=== PATIENT | male | born 1955 | race Caucasian/White ===

== ENCOUNTER 2020-06-11 08:37 | Outpatient (REF) | payer MEDICARE, SELFPAY ==
[2020-06-11 11:28] LABS: MANUAL DIFF FLAG NO
[2020-06-11 11:39] LABS: Basophils Percent Auto 0.4 % (0-2); Eosinophils Absolute Auto 0.2 X10*3/uL (0.0-0.4); Hematocrit 39.3 % (42-52); Hemoglobin 13.4 g/dl (14.0-18.0); Imm Gran Abs Auto 0.02 X10*3/uL (0.00-0.03); Imm Gran Pct Auto 0.2 % (0.0-0.4); Lymphocytes Absolute Auto 3.3 X10*3/uL (1.2-4.9); Lymphocytes Percent Auto 40.3 % (20-40); Mean Corpuscular HGB Conc 34.1 g/dl (31.0-36.0); Mean Corpuscular Hemoglobin 30.9 pg (27.0-33.0); Mean Corpuscular Volume 90.8 fL (80-98); Mean Platelet Volume 10.6 fL (9.4-12.4); Monocytes Absolute Auto 0.7 X10*3/uL (0.1-1.2); Monocytes Percent Auto 8.2 % (2-11); Neutrophils Absolute Auto 3.9 X10*3/uL (2.0-8.3); Neutrophils Percent Auto 47.9 % (45-73); Platelet Count 320 X10*3/uL (160-400); Red Blood Count 4.33 X10*6/uL (4.60-5.80); Red Cell Distribution Width 12.9 % (11.0-16.0); White Blood Count 8.1 X10*3/uL (4.8-10.8)
[2020-06-11 12:15] LABS: Alanine Aminotransferase 13 U/L (0-40); Albumin Level 4.3 g/dL (3.5-5.0); Alkaline Phosphatase 99 U/L (39-117); Anion Gap 15 (12-20); Aspartate Amino Transferase 15 U/L (5-37); Bilirubin Total 0.7 mg/dL (0.0-1.0); Blood Urea Nitrogen 11 mg/dL (9-16); Calcium 9.5 mg/dL (8.4-10.2); Carbon Dioxide 26 mmol/L (22-29); Chloride 101 mmol/L (96-108); Cholesterol 210 mg/dL; Estimated Glomerular Filt Rate > 60; Glucose Fasting 98 mg/dL (60-99); HDL Cholesterol 74 mg/dL; LDL Cholesterol Calculated 117 mg/dl; Potassium 5.1 mmol/L (3.3-5.1); Sodium 137 mmol/L (135-145); Total Protein 6.8 g/dL (6.5-8.0); Triglycerides 95 mg/dL
== END 2020-06-11 08:38 | disposition home or self-care (01) ==
LOC: HO.HMGCLDS 08:37
PROVIDERS: PCP Internal Medicine; Visit Provider Internal Medicine
DX: B35.1 Tinea unguium (principal); R03.0 Elevated blood-pressure reading, without diagnosis of hypertension
CPT/HCPCS: 36415; 80053; 80061; 85025

== ENCOUNTER 2020-07-27 11:34 | Outpatient (REF) | payer MEDICARE, SELFPAY ==
--- NOTE | ~2020-07-27 | US_ITS ---
EXAMINATION: US VENOUS ULTRASOUND WITH DOPPLER LOWER EXTREMITY, LEFT CLINICAL INFORMATION: Left leg pain COMPARISON: None TECHNIQUE: Ultrasound of the deep veins is performed from the hip to the calf with compression sonography and color and pulse Doppler assessment. Spectral analysis with color-flow imaging is performed. FINDINGS: There is normal venous compression and respiratory variation and augmented flow. The visualized common femoral vein, superficial femoral vein, profunda femoral vein, popliteal vein, and the trifurcation region shows no evidence of deep venous thrombosis. There is extensive thrombus seen in the left greater saphenous vein from the proximal thigh to the mid calf. This extends 1.4 cm from the saphenofemoral junction. There is no Curry's cyst. US/US venous duplex LE LT IMPRESSION: No evidence of DVT. Extensive thrombus seen in the left greater saphenous vein or superficial thrombophlebitis. This extends 1.4 cm from the saphenofemoral junction.
== END 2020-07-27 11:35 | disposition home or self-care (01) ==
LOC: HO.US 11:34
PROVIDERS: PCP Internal Medicine; Visit Provider Nurse Practitioner Family
DX: Z13.89 Encounter for screening for other disorder (principal)
CPT/HCPCS: 93971

== ENCOUNTER 2020-07-27 12:38 | Emergency (ER) | payer MEDICARE, SELFPAY ==
[2020-07-27 12:45] VITALS: BP 173/85; PULSE 88; RESP 19; TEMP 36.1; O2SAT 99; BMI 27.6
--- NOTE | 2020-07-27 13:19 | ED.LOWEXIN ---
HPI - Extremity Injury (Lower) General Chief Complaint: Extremity Injury, Lower <LEONIDES Rios Last Filed: 07/27/20 14:18> Stated Complaint: Clot left leg <LEONIDES Rios Last Filed: 07/27/20 14:18> Time Seen by Provider: 07/27/20 13:17 <LEONIDES Rios Last Filed: 07/27/20 14:18> Source: patient <LEONIDES Rios Last Filed: 07/27/20 14:18> Mode of arrival: ambulatory <LEONIDES Rios Last Filed: 07/27/20 14:18> Limitations: no limitations <LEONIDES Rios Last Filed: 07/27/20 14:18> History of Present Illness HPI Narrative: 65 yo male here from outpatient US here with complaints of abnormal finding. He tells me he was seen at urgent care for painful area on the LLE of redness and discomfort which he noted 6 days ago. NO SOB/CP. NO h/o DVT or family history. No injury or trauma. Ambulatory with no difficulty. <LEONIDES Rios Last Filed: 07/27/20 14:18> Related Data Home Medications: Previous Rx's Medication Instructions Recorded terbinafine HCl 250 mg tablet 250 mg PO DAILY 42 Days #42 tab 06/09/20 betamethasone, augmented 0.05 % 1 appl TOPICAL BID PRN #50 g 07/09/20 topical cream prednisone 10 mg tablet 10 mg PO .COMPLEX #45 tab 07/09/20 lisinopril 10 mg tablet 10 mg PO DAILY #30 tab 08/11/20 <LEONIDES Rios Last Filed: 07/27/20 14:18> Allergies/Adverse Reactions: Allergies Allergy/AdvReac Type Severity Reaction Status Date / Time No Known Allergies Allergy Verified 07/25/20 22:57 [No Known Allergies*] <LEONIDES Rios Last Filed: 07/27/20 14:18> Review of Systems Review of Systems: Yes all other systems are reviewed and are negative <LEONIDES Rios Last Filed: 07/27/20 14:18> Constitutional: Constitutional: Reports no additional constitutional complaints, Denies body ache(s), Denies chills, Denies fever(s), Denies headache(s) and Denies weakness <Alena Whitaker NP - Last Filed: 07/27/20 14:18> Eyes: Eyes: Reports no additional eye complaints and Denies change in vision <Alena Whitaker VENDOR MANAGEMENT SPECIALIST - Last Filed: 07/27/20 14:18> ENT: Reports system reviewed and no additional complaints, except as documented, Denies dizziness, Denies headache(s), Denies nasal congestion, Denies nasal discharge and Denies neck pain <Alena Whitaker VENDOR MANAGEMENT SPECIALIST - Last Filed: 07/27/20 14:18> Cardiovascular: Cardiovascular: Reports no additional cardiovascular complaints, Denies chest pain, Denies leg edema and Denies dyspnea <Alena Whitaker VENDOR MANAGEMENT SPECIALIST - Last Filed: 07/27/20 14:18> Respiratory: Respiratory: Reports no additional respiratory complaints, Denies cough and Denies dyspnea <Alena Whitaker VENDOR MANAGEMENT SPECIALIST - Last Filed: 07/27/20 14:18> Gastrointestinal: Gastrointestinal: Reports no additional gastrointestinal complaints, Denies abdominal pain, Denies diarrhea, Denies nausea and Denies vomiting <Alena Whitaker VENDOR MANAGEMENT SPECIALIST - Last Filed: 07/27/20 14:18> Genitourinary: Genitourinary: Denies urinary incontinence <Alena Whitaker VENDOR MANAGEMENT SPECIALIST - Last Filed: 07/27/20 14:18> Musculoskeletal: Musculoskeletal: Reports no additional musculoskeletal complaints, Denies back pain, Denies arthralgias, Denies joint swelling, Denies neck pain, Denies numbness and Denies tingling <Alena Whitaker VENDOR MANAGEMENT SPECIALIST - Last Filed: 07/27/20 14:18> Integumentary/Breasts: Skin/Breast: Reports system reviewed and no additional complaints, except as docu, Reports erythema and Denies rash <Alena Whitaker VENDOR MANAGEMENT SPECIALIST - Last Filed: 07/27/20 14:18> Neurologic: Reports system reviewed and no additional complaints, except as documented, Denies Abnormal speech present, Denies dizziness, Denies headache(s), Denies numbness, Denies tingling and Denies weakness <Alena Whitaker NP - Last Filed: 07/27/20 14:18> [facility] Past Medical History Attestation statement: The following information was validated with the patient. <Alena Whitaker NP - Last Filed: 07/27/20 14:18> Source: old records reviewed and nursing notes reviewed <Alena Whitaker NP - Last Filed: 07/27/20 14:18> Medical History: Medical History Alcohol use disorder Elevated blood pressure reading Essential hypertension Herniated disc <Alena Whitaker NP - Last Filed: 07/27/20 14:18> Surgical History: Surgical History No pertinent past surgical history <Alena Whitaker NP - Last Filed: 07/27/20 14:18> Family History Family History: Family History Mother Diabetes mellitus Sister Diabetes mellitus <Alena Whitaker NP - Last Filed: 07/27/20 14:18> Social History Social History: Social History Alcohol intake: current Alcohol intake frequency: 3 or more drinks per day Alcohol type: beer Cigarette Packs Per Day: 10 <Alena Whitaker NP - Last Filed: 07/27/20 14:18> Physical Exam Vital Signs: Vital Signs: Last Vital Signs Temp 97 F 07/27/20 12:45 Pulse 88 07/27/20 12:45 Resp 07/27/20 12:45 BP 173/85 H 07/27/20 12:45 Pulse Ox 99 07/27/20 12:45 Body Mass Index 27.6 <Alena Whitaker NP - Last Filed: 07/27/20 14:18> Vital Signs: Last Vital Signs Temp 97 F 07/27/20 12:45 Pulse 88 07/27/20 12:45 Resp 07/27/20 12:45 BP 173/85 H 07/27/20 12:45 Pulse Ox 99 07/27/20 12:45 Body Mass Index 27.6 <Ab Martinez MD - Last Filed: 09/01/20 17:29> Const: General: cooperative, healthy appearing, comfortable and no acute distress <Alena Whitaker NP - Last Filed: 07/27/20 14:18> Orientation/consciousness: patient oriented x3 <Alena Whitaker NP - Last Filed: 07/27/20 14:18> Limitations: no limitations <Alena Whitaker NP - Last Filed: 07/27/20 14:18> HENMT: Head: Yes normal to inspection <Alena Whitaker NP - Last Filed: 07/27/20 14:18> Ears: hearing grossly normal bilaterally <Alena Whitaker NP - Last Filed: 07/27/20 14:18> General nose exam: Normal external nose present <Alena Whitaker NP - Last Filed: 07/27/20 14:18> Face and sinus: Yes normal facial exam <Alena Whitaker NP - Last Filed: 07/27/20 14:18> Mouth: Normal oral and palatal mucosa present <Alena Whitaker NP - Last Filed: 07/27/20 14:18> Throat: Yes posterior oropharynx normal <Alena Whitaker NP - Last Filed: 07/27/20 14:18> Eyes: General: appearance normal, both eyes and all related structures <Alena Whitaker NP - Last Filed: 07/27/20 14:18> Pupils: Equal, round and reactive pupils present <Alena Whitaker NP - Last Filed: 07/27/20 14:18> Neck: Neck: Yes normal visual inspection <Alena Whitaker NP - Last Filed: 07/27/20 14:18> Chest: Chest palpation & inspection: normal inspection of the chest <Alena Whitaker NP - Last Filed: 07/27/20 14:18> Resp: Effort & Inspection: normal respiratory effort <Alena Whitaker NP - Last Filed: 07/27/20 14:18> Auscultation: clear to auscultation bilaterally <Alena Whitaker NP - Last Filed: 07/27/20 14:18> Cardio: Rate: regular rate <Alena Whitaker VENDOR MANAGEMENT SPECIALIST - Last Filed: 07/27/20 14:18> Rhythm: regular rhythm <Alena Whitaker NP - Last Filed: 07/27/20 14:18> Peripheral pulses: Peripheral pulses 2+ throughout <Alena Whitaker VENDOR MANAGEMENT SPECIALIST - Last Filed: 07/27/20 14:18> GI: Inspection: Yes normal to inspection <Alena Whitaker NP - Last Filed: 07/27/20 14:18> Palpation (GI): Soft to palpation and nontender <Alena Whitaker VENDOR MANAGEMENT SPECIALIST - Last Filed: 07/27/20 14:18> Auscultation: normal bowel sounds <Alena Whitaker NP - Last Filed: 07/27/20 14:18> Back/Spine/Pelvis: Thoracic/Lumbar Spine: thoracic and lumbar spine normal to inspection <Alena Whitaker VENDOR MANAGEMENT SPECIALIST - Last Filed: 07/27/20 14:18> Skin: General skin exam: no rashes or lesions noted <Alena Whitaker NP - Last Filed: 07/27/20 14:18> Neuro: General: patient oriented x3, no focal motor deficits and normal sensation to monofilament <Alena Whitaker NP - Last Filed: 07/27/20 14:18> Cranial nerves: Yes Equal, round and reactive pupils present <Alena Whitaker NP - Last Filed: 07/27/20 14:18> Cognition (Neuro): normal cognition <Alena Whitaker NP - Last Filed: 07/27/20 14:18> Speech: No Abnormal speech present <Alena Whitaker NP - Last Filed: 07/27/20 14:18> Gait exam (Neuro): Normal gait present <Alena Whitaker NP - Last Filed: 07/27/20 14:18> Motor exam (neuro): 5/5 motor strength present throughout <Alena Whitaker NP - Last Filed: 07/27/20 14:18> Extrem: Other: To the left calf there is a paplable tender vein with mild erythema but no calf pain or swelling. <Alena Whitaker NP - Last Filed: 07/27/20 14:18> General: Yes normal to inspection <Alena Whitaker NP - Last Filed: 07/27/20 14:18> Course Course Course Narrative: 65 yo male here with complaints of abnormal US. Reviewed US which shows NO DVT. Thrombus in the left greater saphenus vein with superficial thrombophlebitis. Discussed findings with Dr Martinez. Plan for warm compresses, NSAIDS w/w/o 81mg ASA. Discussed with patient who agrees. Reviewed worrisome signs/symptoms with patient and when to return to ED. Comfortable with discharge home. <Alena Whitaker NP - Last Filed: 07/27/20 14:18> I have reviewed the chart <Ab Martinez MD - Last Filed: 09/01/20 17:29> MDM - Extremity Injury (Lower) Medical Records Attestation: I reviewed the patient's medical records. <Alena Whitaker NP - Last Filed: 07/27/20 14:18> Lab Data Attestation: I reviewed the patient's lab results. <Alena Whitaker NP - Last Filed: 07/27/20 14:18> Imaging Data Venous US: Attestation: I personally reviewed and interpreted this imaging study as follows: <Alena Whitaker NP - Last Filed: 07/27/20 14:18> Radiologist's impression: [address] [id number] ReportSigned Patient: Joe GastonMR#: [id number]: [id number]:[id number]/Sex: 65 / MADM Date: 07/27/20Loc: HO.USAttending Dr: Zeynep Rome NP Ordering Physician: Zeynep Rome NP Date of Service: 07/27/20 Procedure(s): US venous duplex LE LT Accession Number(s): [id number] cc: Zeynep Rome NP~ EXAMINATION: US VENOUS ULTRASOUND WITH DOPPLER LOWER EXTREMITY, LEFT CLINICAL INFORMATION: Left leg pain COMPARISON: None TECHNIQUE: Ultrasound of the deep veins is performed from the hip to the calf with compression sonography and color and pulse Doppler assessment. Spectral analysis with color-flow imaging is performed. FINDINGS: There is normal venous compression and respiratory variation and augmented flow. The visualized common femoral vein, superficial femoral vein, profunda femoral vein, popliteal vein, and the trifurcation region shows no evidence of deep venous thrombosis. There is extensive thrombus seen in the left greater saphenous vein from the proximal thigh to the mid calf. This extends 1.4 cm from the saphenofemoral junction. There is no Curry's cyst. US/US venous duplex LE IMPRESSION: No evidence of DVT. Extensive thrombus seen in the left greater saphenous vein or superficial thrombophlebitis. This extends 1.4 cm from the saphenofemoral junction. <Alena Whitaker NP - Last Filed: 07/27/20 14:18> Discharge Plan Discharge Clinical Impression: Superficial thrombophlebitis of left leg <Alena Whitaker NP - Last Filed: 07/27/20 14:18> Patient Disposition: Home, Self-Care <Alena Whitaker NP - Last Filed: 07/27/20 14:18> Instructions: Superficial Thrombophlebitis (ED) <Alena Whitaker NP - Last Filed: 07/27/20 14:18> Additional Instructions: Your ultrasound shows a superfical blood clot but NO deep blood clots Warm compresses to the leg four times daily Motrin 400mg three time daily for pain and inflammation Consider taking a baby aspirin daily 81mg and following up with your primary care doctor <Alena Whitaker NP - Last Filed: 07/27/20 14:18> Prescriptions: No Action lisinopril 10 mg tablet 10 mg PO DAILY Qty: 30 RF: 2 prednisone 10 mg tablet 10 mg PO .COMPLEX Qty: 45 RF: 0 betamethasone, augmented 0.05 % cream 1 appl topical BID PRN (Reason: itching) Qty: 50 RF: 0 terbinafine HCl 250 mg tablet 250 mg PO DAILY 42 Days Qty: 42 RF: 0 <Alena Whitaker NP - Last Filed: 07/27/20 14:18> Referrals: Tracy Lowry MD [Primary Care Provider] - 2 days <Alena Whitaker NP - Last Filed: 07/27/20 14:18> Interventions: ED Discharge Assessment Last Done: 07/27/20 13:49 <Alena Whitaker NP - Last Filed: 07/27/20 14:18> Discharge Date/Time: 07/27/20 13:51 <Alena Whitaker NP - Last Filed: 07/27/20 14:18>
--- NOTE | 2020-07-27 13:47 | PC.NURSE ---
PT WAS EVALUATED IN TRIAGE BY СВЕТЛАНА REPAIRER [employer]. PT WAS ASSESSED AND SENT FOR IMAGING. PT AMBULATORY, +CMS. DENIES SOB. DENIES CP OR DIZZINESS. PT AGREEABLE TO PLAN OF CARE. RESULTS REVIEWED BY REPAIRER [employer], PLAN IS FOR DC FROM WAITING ROOM. PT AGREEABLE TO PLAN. REMAINS ALERT AND ORIENTED X 3. CONTINUES TO DENY CP/SOB. AMBULATORY, GAIT STEADY
== END 2020-07-27 13:51 | disposition home or self-care (01) ==
PROVIDERS: Emergency Provider Emergency Medicine; PCP Internal Medicine
DX: I80.02 Phlebitis and thrombophlebitis of superficial vessels of left lower extremity (principal); M79.605 Pain in left leg; I10 Essential (primary) hypertension
CPT/HCPCS: 93971; 99283

== ENCOUNTER 2020-10-25 11:43 | Outpatient (REF) | payer MEDICARE, SELFPAY ==
[2020-10-25 14:22] LABS: Anion Gap 14 (12-20); Blood Urea Nitrogen 9 mg/dL (9-16); Calcium 9.9 mg/dL (8.4-10.2); Carbon Dioxide 22 mmol/L (22-29); Chloride 102 mmol/L (96-108); Estimated Glomerular Filt Rate > 60; Glucose Fasting 93 mg/dL (60-99); Potassium 5.3 mmol/L (3.3-5.1); Sodium 133 mmol/L (135-145)
== END 2020-10-25 11:44 | disposition home or self-care (01) ==
LOC: HO.HMGCLDS 11:43
PROVIDERS: PCP Internal Medicine; Visit Provider Internal Medicine
DX: I10 Essential (primary) hypertension (principal)
CPT/HCPCS: 36415; 80048

== ENCOUNTER 2021-07-01 09:38 | Emergency (ER) | payer MEDICARE, SELFPAY ==
[2021-07-01 09:44] VITALS: BP 167/95; PULSE 102; RESP 16; TEMP 36.2; O2SAT 99; BMI 28.2
[2021-07-01] MEDS: Tetracaine HCl/PF 0.5% Oph Sol 4 ML DROPS 2 DROP EYE-BOTH (09:54)
[2021-07-01] MEDS: Fluorescein Sodium STRIP 1 STRIP EYE-BOTH (09:55)
[2021-07-01] MEDS: Erythromycin Base 0.5% Oph Oin 1 GM TUBE 1 CM EYE-RIGHT (09:55)
--- NOTE | 2021-07-01 10:04 | ED_ITS ---
HPI - Eye Problem General Chief complaint: Eye Problems Stated complaint: FO in R eye Time Seen by Provider: 07/01/21 09:51 Source: patient Mode of arrival: ambulatory Limitations: no limitations History of Present Illness HPI Narrative: 65-year-old male presenting to the ED with complaints of feeling like there is a foreign body in his right eye with increased blurry vision since when he was outside doing yd work he reports that a branch poked his right eye and this is when his symptoms started. Reports he is not sure if he is up-to-date on tetanus. He denies any other symptoms complaints or concerns at this time. chief complaint: eye injury, vision change and foreign body Onset (ago): week(s) (6) Onset description: sudden Duration: constant Location: right eye Eye Symptoms: foreign body sensation, itching and blurry vision Place: street/outdoors Mechanism: direct trauma Severity: mild If Pain, Quality: other (foreign body sensation ) Associated symptoms: none Treatments Prior to Arrival: irrigated eye Related Data Patient tetanus UTD: No Home Medications Medication Instructions Recorded Confirmed triamcinolone acetonide 0.1 % 1 appl TOPICAL DAILY 04/25/21 04/25/21 topical cream Previous Rx's Medication Instructions Recorded lisinopril 10 mg tablet 10 mg PO DAILY #90 tab 03/10/21 erythromycin 5 mg/gram (0.5 %) eye 0.5 inch OPHTHALMIC (EYE) QID 7 07/01/21 ointment Days #3.5 g Allergies Allergy/AdvReac Type Severity Reaction Status Date / Time No Known Allergies Allergy Verified 07/01/21 09:47 [No Known Allergies*] Review of Systems Review of Systems: Constitutional : No fevers, no chills, No changes in activity, No lethargy, No recent prior head injury, No agitation, No increased fussiness ENT/Mouth : No Ear Pain, No Nasal discharge/drainage Eyes: + Vision changes/blurry/decreased vision/FB sensation, No Eye Pain, No Swelling, No Redness, No Photophobia, no discharge, no drainage, no itching, no eyelid edema, no contact lens uses, no recent welding, no bleeding Cardiovascular : No Chest Pain, No SOB Respiratory : No Cough Gastrointestinal : No Nausea, No Vomiting, No abdominal Pain Genitourinary : No Dysuria, No Urinary Frequency, No Urinary Incontinence, No Urgency, No Flank Pain Musculoskeletal : No joint pain, No neck stiffness, No back pain/injury Skin : No lacerations Neuro : No unsteady gait, No Paresthesias, No Loss of Consciousness, No altered mental status, No dizziness, No Headache Denies past medical history of HIV, recent trauma, coagulopathy, recent spinal/ epidural procedure, new medication, URI symptoms, close contacts with similar symptoms, tick bite, or known CO2 exposure. Yes all other systems are reviewed and are negative [facility] Past Medical History Attestation statement: The following information was validated with the patient. Medical History Alcohol use disorder Anemia Essential hypertension Herniated disc Spongiotic dermatitis Surgical History No pertinent past surgical history Family History Family History Mother Diabetes mellitus Sister Diabetes mellitus Social History Social History Housing: House Alcohol intake: current Alcohol intake frequency: 3 or more drinks per day Alcohol type: beer Patient Tobacco Use Status: Current everyday Tobacco user Cigarette Packs Per Day: 10 e-Cigarette/Vaping Use: Never Used Advance Directives: No Advance Directives Information Provided: No service: No Current occupational status: retired Physical Exam Vital Signs: Vital Signs: Last Vital Signs Temp 97.1 F 07/01/21 09:44 Pulse 102 H 07/01/21 09:44 Resp 16 07/01/21 09:44 BP 167/95 H 07/01/21 09:44 Pulse Ox 99 07/01/21 09:44 BMI result Body Mass Index 28.2 vital signs have been reviewed as normal and appeared to be correct. Blood pressure normal. Heart rate normal. Respiration rate normal. Temperature normal. Oxygen saturation normal. Appearance: Alert. Oriented X3. No acute distress. Head: Normal external exam. Normocephalic. Atraumatic. No Awad signs noted. No raccoon eyes noted Eyes: PERRLA. EOMI. Conjunctiva are normal. To the right upper aspect of the cornea at the 12:00 o'clock aspect patient has a superficial corneal abrasion. No foreign bodies noted. Funduscopic exam within normal limits. Sclera normal. Eyelids normal. No papilledema noted. Anterior chamber normal. No photophobia noted. See nurse's note. for visual acuity ENT: EAC normal. TM's Normal. Pharynx normal. Uvula midline. Moist mucous membranes. Neck: Normal inspection. Neck supple. FROM. No adenopathy. Thyroid Normal. No meningeal signs. No neck mass noted. CVS: Normal heart rate and rhythm. Heart sound normal. No murmurs noted. Pulses normal throughout. Respiratory: No respiratory distress. Painless inspiration. Breath sounds normal. Back: Full range of motion noted. Skin: Skin warm and dry. Normal skin color. Normal skin turgor. No rashes/lesions/lacerations noted. Extremities: No lower extremity edema. Extremities exhibit normal range of motion. Extremities nontender. Neuro: Oriented X 3. No motor deficit. No sensory deficit. Reflexes normal. Course Course Course Narrative: Patient with corneal abrasion. No foreign bodies noted. See nurse's note for visual acuity. Tetanus updated. Erythromycin ointment applied. Patient tolerated procedure well no complications. Not consistent with globe rupture. No signs of infection. Will DC home with instructions to follow-up with PCP an electronics tester and to return if any new or worsening symptoms. Patient understands agrees with this plan. MDM - Eye Problem Medical Records Attestation: I reviewed the patient's medical records. Discharge Plan Discharge Clinical Impression: Corneal abrasion Patient Disposition: Home, Self-Care Instructions: Corneal Abrasion (ED) Prescriptions: New erythromycin 5 mg/gram (0.5 %) ointment 0.5 inch ophthalmic (eye) QID 7 Days Qty: 3.5 0RF No Action lisinopril 10 mg tablet 10 mg PO DAILY Qty: 90 3RF triamcinolone acetonide 0.1 % cream 1 appl topical DAILY 0RF Referrals: Tracy Lowry MD [Primary Care Provider] - 2 days Hcetor Eid [Physician] - 2 days Print Language: Icelandic
[2021-07-01] MEDS: Diphth,Pertus(ACell),Tet Adult 0.5 ML SYRINGE IM (10:17)
== END 2021-07-01 10:22 | disposition home or self-care (01) ==
LOC: HO.ED 10:14
PROVIDERS: Emergency Provider Emergency Medicine Emergency Medical Services; PCP Internal Medicine
DX: S05.01XA Injury of conjunctiva and corneal abrasion without foreign body, right eye, initial encounter (principal); I10 Essential (primary) hypertension; W26.8XXA Contact with other sharp object(s), not elsewhere classified, initial encounter; Y93.H9 Activity, other involving exterior property and land maintenance, building and construction; Y92.096 Garden or yard of other non-institutional residence as the place of occurrence of the external cause; Y99.9 Unspecified external cause status
CPT/HCPCS: 90471; 90715; 99283; 99284

== ENCOUNTER 2021-12-05 08:42 | Outpatient (REF) | payer MEDICARE, SELFPAY ==
[2021-12-05 11:16] LABS: MANUAL DIFF FLAG NO
[2021-12-05 11:33] LABS: Basophils Absolute Auto 0.1 X10*3/uL (0.0-0.2); Basophils Percent Auto 0.6 % (0-2); Eosinophils Absolute Auto 0.4 X10*3/uL (0.0-0.4); Hemoglobin 13.7 g/dl (14.0-18.0); Imm Gran Abs Auto 0.05 X10*3/uL (0.00-0.03); Imm Gran Pct Auto 0.6 % (0.0-0.4); Mean Corpuscular HGB Conc 34.3 g/dl (31.0-36.0); Mean Corpuscular Hemoglobin 31.6 pg (27.0-33.0); Mean Corpuscular Volume 92.4 fL (80.0-98.0); Mean Platelet Volume 10.8 fL (9.4-12.4); Monocytes Absolute Auto 0.8 X10*3/uL (0.1-1.2); Monocytes Percent Auto 9.5 % (2-11); Neutrophils Absolute Auto 5.3 x10*3/uL (2.0-8.3); Neutrophils Percent Auto 61.3 % (45-73); Platelet Count 343 X10*3/uL (160-400); Red Blood Count 4.33 X10*6/uL (4.60-5.80); Red Cell Distribution Width 12.6 % (11.0-16.0); White Blood Count 8.6 X10*3/uL (4.8-10.8)
[2021-12-05 12:22] LABS: Anion Gap 16 (12-20); Blood Urea Nitrogen 15 mg/dL (9-16); Carbon Dioxide 25 mmol/L (22-29); Chloride 102 mmol/L (96-108); Cholesterol 205 mg/dL; Estimated Glomerular Filt Rate > 60; Glucose Fasting 106 mg/dL (60-99); HDL Cholesterol 56 mg/dL; Iron 77 mcg/dL (45-160); LDL Cholesterol Calculated 130 mg/dl; Percent Iron Saturation 23 % (15-50); Potassium 5.5 mmol/L (3.3-5.1); Sodium 137 mmol/L (135-145); Total Iron Binding Capacity 342 mcg/dL (228-428); Triglycerides 97 mg/dL; Unsaturated Iron Binding 265 ug/dL
== END 2021-12-05 08:43 | disposition home or self-care (01) ==
LOC: HO.HMGCLDS 08:42
PROVIDERS: PCP Internal Medicine; Visit Provider Internal Medicine
DX: D64.9 Anemia, unspecified (principal); I10 Essential (primary) hypertension
CPT/HCPCS: 36415; 80048; 80061; 83540; 85025

== ENCOUNTER 2021-12-13 13:15 | Outpatient (REF) | payer MEDICARE, SELFPAY ==
[2021-12-13 14:52] LABS: PSA,Total (Free>4and<10) 1.13 ng/mL (0.00-4.00)
[2021-12-14 13:33] LABS: Lyme Abs Screen <0.90 index
== END 2021-12-13 13:16 | disposition home or self-care (01) ==
LOC: HO.HMGCLDS 13:15
PROVIDERS: PCP Internal Medicine; Visit Provider Internal Medicine
DX: Z12.5 Encounter for screening for malignant neoplasm of prostate (principal); M25.50 Pain in unspecified joint; R58 Hemorrhage, not elsewhere classified
CPT/HCPCS: 36415; 84153; 86617; 86618

== ENCOUNTER 2022-06-09 08:58 | Outpatient (REF) | payer MEDICARE, SELFPAY ==
[2022-06-09 11:39] LABS: MANUAL DIFF FLAG NO
[2022-06-09 12:00] LABS: Basophils Absolute Auto 0.1 X10*3/uL (0.0-0.2); Basophils Percent Auto 0.7 % (0-2); Eosinophils Absolute Auto 0.6 X10*3/uL (0.0-0.4); Eosinophils Percent Auto 6.5 % (0-4); Hematocrit 39.6 % (42.0-52.0); Hemoglobin 13.6 g/dl (14.0-18.0); Imm Gran Abs Auto 0.04 X10*3/uL (0.00-0.03); Imm Gran Pct Auto 0.4 % (0.0-0.4); Lymphocytes Absolute Auto 2.4 X10*3/uL (1.2-4.9); Lymphocytes Percent Auto 25.9 % (20-40); Mean Corpuscular HGB Conc 34.3 g/dl (31.0-36.0); Mean Corpuscular Hemoglobin 31.5 pg (27.0-33.0); Mean Corpuscular Volume 91.7 fL (80.0-98.0); Mean Platelet Volume 10.9 fL (9.4-12.4); Monocytes Absolute Auto 0.8 X10*3/uL (0.1-1.2); Monocytes Percent Auto 8.3 % (2-11); Neutrophils Absolute Auto 5.3 x10*3/uL (2.0-8.3); Neutrophils Percent Auto 58.2 % (45-73); Platelet Count 361 X10*3/uL (160-400); Red Blood Count 4.32 X10*6/uL (4.60-5.80); Red Cell Distribution Width 12.4 % (11.0-16.0); White Blood Count 9.2 X10*3/uL (4.8-10.8)
[2022-06-09 12:36] LABS: Alanine Aminotransferase 16 U/L (0-40); Anion Gap 13 (12-20); Aspartate Amino Transferase 14 U/L (5-37); Blood Urea Nitrogen 8 mg/dL (9-16); Calcium 9.6 mg/dL (8.4-10.2); Carbon Dioxide 25 mmol/L (22-29); Chloride 101 mmol/L (96-108); Cholesterol 216 mg/dL; Estimated Glomerular Filt Rate > 60; Glucose Fasting 109 mg/dL (60-99); HDL Cholesterol 46 mg/dL; Iron 97 mcg/dL (45-160); LDL Cholesterol Calculated 131 mg/dl; Percent Iron Saturation 33 % (15-50); Potassium 4.8 mmol/L (3.3-5.1); Sodium 134 mmol/L (135-145); Total Iron Binding Capacity 296 mcg/dL (228-428); Triglycerides 195 mg/dL; Unsaturated Iron Binding 199 ug/dL
[2022-06-09 13:08] LABS: Folate 8.7 ng/mL (> or = 4.0); Vitamin B12 390 pg/mL (200-900); Vitamin D 25-OH Total 19.7 ng/mL (>30)
== END 2022-06-09 08:59 | disposition home or self-care (01) ==
LOC: HO.HMGCLDS 08:58
PROVIDERS: PCP Internal Medicine; Visit Provider Internal Medicine
DX: I10 Essential (primary) hypertension (principal); D64.9 Anemia, unspecified; B35.1 Tinea unguium; F10.90 Alcohol use, unspecified, uncomplicated
CPT/HCPCS: 36415; 80048; 80061; 82306; 82607; 82746; 83540; 84450; 84460; 85025

== ENCOUNTER 2022-08-18 09:06 | Emergency (ER) | payer MEDICARE, SELFPAY ==
[2022-08-18 09:11] VITALS: BP 147/93; PULSE 106; RESP 19; TEMP 36.6; O2SAT 98; BMI 28.3
[2022-08-18 10:06] LABS: MANUAL DIFF FLAG NO
--- NOTE | 2022-08-18 10:07 | ED.GENADULT ---
HPI - General Adult General Chief complaint: General Medical Stated complaint: body rash Time Seen by Provider: 08/18/22 09:27 Source: patient Mode of arrival: ambulatory Limitations: no limitations History of Present Illness HPI narrative: 67-year-old male presents to ED for worsening itchy rash upper extremities. Patient has history of severe eczema. Patient denies also eczema rash on back and neck. Patient denies any chest pain or shortness of breath. Patient denies any fever, chills, lip swelling, tongue swelling, facial swelling, or sensation of throat closing. Related Data Previous Rx's Medication Instructions Recorded lisinopril 10 mg tablet 10 mg PO DAILY #90 tabs 12/13/21 amlodipine 5 mg tablet 5 mg PO DAILY #30 tabs 06/12/22 ketoconazole 2 % topical cream 1 appl topical BID 14 days #60 06/12/22 grams diphenhydramine HCl 25 mg capsule 25 mg PO TID PRN itching 7 days 08/18/22 (Benadryl) #21 caps prednisone 20 mg tablet 60 mg PO DAILY 5 days #15 tabs 08/18/22 triamcinolone acetonide 0.5 % 1 appl topical BID 2 weeks #15 08/18/22 topical cream grams Allergies Allergy/AdvReac Type Severity Reaction Status Date / Time No Known Allergies Allergy Verified 08/18/22 09:11 [No Known Allergies*] Review of Systems Review of Systems: Itchy eczema rash Yes all other systems are reviewed and are negative [facility] Past Medical History Medical History (Updated 08/18/22 @ 11:18 by LYNSEY Kumar) Alcohol use disorder Anemia Essential hypertension Herniated disc Hypertension, uncontrolled Multiple ecchymoses of both upper arms Polyarthralgia Spongiotic dermatitis Tinea corporis Surgical History No pertinent past surgical history Family History Family History Mother Diabetes mellitus Sister Diabetes mellitus Social History Social History Housing: House Alcohol intake: current Alcohol intake frequency: holidays/special occasions only Alcohol type: beer Patient Tobacco Use Status: Current everyday Tobacco user Cigarette Packs Per Day: 10 Smoked in Last 30 Days: Yes e-Cigarette/Vaping Use: Never Used Use of substances other than those prescribed or required for medical reasons: No Advance Directives: Yes Advance Directives on File: Yes Advance Directives Date on File: 01/09/22 service: No Current occupational status: retired Cognitive needs: No Hearing needs: No Vision needs: No Physical Exam ED Vital Signs: Vital Signs - 24 hr 08/18/22 09:11 08/18/22 11:01 Temperature 98 F 97.6 F Pulse Rate 106 H 98 Respiratory Rate 19 20 Blood Pressure 147/93 H 141/91 H Pulse Oximetry 98 99 Oxygen Delivery Method Room Air Room Air BMI result Body Mass Index 28.3 Const General: cooperative, healthy appearing, comfortable, no acute distress, well developed, alert, awake and Physically active Orientation/consciousness: oriented to person, oriented to place, oriented to time and patient oriented x3 HENMT Other: eczema rash. Negative for warmth or tenderness on palpation negative for tongue swelling, lip swelling, or facial swelling. Patient speaking in full sentences. Negative for neck swelling. Negative for drooling or change in voice P Head: Yes normal to inspection, Yes No palpable skull fracture present, Yes normocephalic, Yes atraumatic and No abrasion Mouth: Normal oral and palatal mucosa present, lip normal and tongue normal Throat: Yes posterior oropharynx normal, Yes tonsils normal and Yes uvula midline Eyes General: appearance normal, both eyes and all related structures Neck Neck: Yes normal visual inspection, Yes full ROM, Yes no lymphadenopathy, Yes no meningeal signs, Yes trachea midline, Yes supple, No anterior neck swelling and No tender Chest Chest palpation & inspection: normal inspection of the chest and normal palpation of entire chest wall Resp Effort & Inspection: normal respiratory effort and able to speak in complete sentences Auscultation: clear to auscultation bilaterally Cardio Jugular venous distension: no JVD Heart sounds: S1 normal heart sound present and S2 normal heart sound present GI Inspection: Yes normal to inspection and No abdominal wall ecchymosis Palpation (GI): Soft to palpation, not firm, nontender, no guarding and not rigid General: No CVA tenderness and Yes no CVA tenderness Back/Spine/Pelvis Other: mild eczema rash on back. Back: no CVA tenderness, No CVA tenderness and No back tenderness Skin Other: Eczema rash. General skin exam: elasticity normal and turgor normal Neuro General: oriented to person, oriented to place, oriented to time, patient oriented x3, gait normal, tone normal, moves all extremities, Normal light touch and pain sensation, no meningeal signs, no focal motor deficits, CN's II-XI intact bilaterally and normal sensation to monofilament Extrem Other: Patient states when eczema gets really bad appears as in picture. 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 General: Yes normal to inspection, Yes full ROM and Yes capillary refill normal Psych Appearance: grossly normal, well kempt and not disheveled Course Course Course Narrative: Evaluation seen of the patient has severe eczema but due to darkening petechial like rash on upper extremities will do labs to make sure no signs of anemia or low platelets. Medical Decision Making Medical Decision Making [facility] Narrative: 67-year-old male presents to ED for worsening eczema being followed by Dermatology. Patient states itchy rash. Patient denies any lip swelling, tongue swelling, chest pain, shortness of breath, or sensation of throat closing. Rash upper extremity seems dark like petechiae patient states when his eczema gets that bad it appears dark as petechiae as stated by his orchard worker. patient states rash on arm itchy and nonpainful. patient denies any recent trauma. Labs to make sure patient was not anemic and have low platelets. Labs are normal. patient deneis any new trauma. not suspecting fractures. Differential Diagnosis Differential Diagnoses: The differential diagnosis associated with the presentation includes ( Anemia, thrombocytopenia, cellulitis, eczema, dermatitis,) Admission/Observation Consideration of admission/observation: Escalation of care including admission/observation considered Lab Data [facility] Lab Attestation statement: I reviewed the patient's lab results. 08/18/22 10:01 08/18/22 10:01 Labs: Lab Results 08/18/22 08/18/22 08/18/22 Range/Units 10:01 10:01 10:01 WBC 8.7 (4.8-10.8) X10*3/uL RBC 4.21 L (4.60-5.80) X10*6/uL Hgb 13.4 L (14.0-18.0) g/dl Hct 38.2 L (42.0-52.0) % MCV 90.7 (80.0-98.0) fL MCH 31.8 (27.0-33.0) pg MCHC 35.1 (31.0-36.0) g/dl RDW 12.4 (11.0-16.0) % Plt Count 312 (160-400) X10*3/uL MPV 10.7 (9.4-12.4) fL Immature Gran % (Auto) 0.3 (0.0-0.4) % Neut % (Auto) 65.2 (45-73) % Lymph % (Auto) 22.0 (20-40) % Preble % (Auto) 7.7 (2-11) % Eos % (Auto) 4.1 H (0-4) % Baso % (Auto) 0.7 (0-2) % Lymph # (Auto) 1.9 (1.2-4.9) X10*3/uL Preble # (Auto) 0.7 (0.1-1.2) X10*3/uL Eos # (Auto) 0.4 (0.0-0.4) X10*3/uL Baso # (Auto) 0.1 (0.0-0.2) X10*3/uL Abs Immat Gran (auto) 0.03 (0.00-0.03) X10*3/uL Absolute Neuts (auto) 5.7 (2.0-8.3) x10*3/uL Absolute Nucleated RBC 0.000 (0.0-0.012) X10*3/uL Nucleated RBC % (auto) 0.0 (0.0-0.2) /100WBC PT 10.5 (10.0-13.1) SEC INR 0.9 (0.9-1.1) APTT 31.1 (26.0-36.4) SEC Sodium 135 (135-145) mmol/L Potassium 4.1 (3.3-5.1) mmol/L Chloride 102 (96-108) mmol/L Carbon Dioxide 23 (22-29) mmol/L Anion Gap 14 (12-20) BUN 11 (9-16) mg/dL Creatinine 0.84 (0.5-1.4) mg/dL Estim Creat Clear Calc 104.8 Estimated GFR > 60 Random Glucose 103 (60-115) mg/dL Calcium 9.8 (8.4-10.2) mg/dL Total Bilirubin 0.6 (0.0-1.0) mg/dL AST 15 (5-37) U/L ALT 18 (0-40) U/L Alkaline Phosphatase 95 (39-117) U/L Total Protein 7.0 (6.5-8.0) g/dL Albumin 4.2 (3.5-5.0) g/dL Prescription Management I considered prescription management with: Other ( Benadryl, prednisone, and triamcinolone) Chronic Conditions Patient?s care impacted by: Hypertension Discharge Plan Discharge Clinical Impression: Eczema Patient Disposition: Home, Self-Care Instructions: Dermatitis (ED) Additional Instructions: Return to the ED for worsening rash, rectal bleeding, vomiting blood, lip swelling, tongue swelling, sensation of throat closing chest pain, shortness of breath, or any other concerning symptoms. Please follow-up with primary care provider and [facility]. Do not put traimcinolone on the face. Your labs came back normal. Prescriptions: New prednisone 20 mg tablet 60 mg PO DAILY 5 Days Qty: 15 0RF diphenhydramine HCl [Benadryl] 25 mg capsule 25 mg PO TID PRN (Reason: itching) 7 Days Qty: 21 0RF Rx Instructions: side effect is drowsiness. Do not take while driving or at work triamcinolone acetonide 0.5 % cream 1 appl topical BID 14 Days Qty: 15 0RF No Action lisinopril 10 mg tablet 10 mg PO DAILY Qty: 90 3RF amlodipine 5 mg tablet 5 mg PO DAILY Qty: 30 2RF ketoconazole 2 % cream 1 appl topical BID 14 Days Qty: 60 0RF Interventions: ED Discharge Assessment Last Done: 08/18/22 11:54 Discharge Date/Time: 08/18/22 11:55 Print Language: Burundian
[2022-08-18 10:14] LABS: Basophils Absolute Auto 0.1 X10*3/uL (0.0-0.2); Basophils Percent Auto 0.7 % (0-2); Eosinophils Absolute Auto 0.4 X10*3/uL (0.0-0.4); Eosinophils Percent Auto 4.1 % (0-4); Hematocrit 38.2 % (42.0-52.0); Hemoglobin 13.4 g/dl (14.0-18.0); Imm Gran Abs Auto 0.03 X10*3/uL (0.00-0.03); Imm Gran Pct Auto 0.3 % (0.0-0.4); Lymphocytes Absolute Auto 1.9 X10*3/uL (1.2-4.9); Mean Corpuscular HGB Conc 35.1 g/dl (31.0-36.0); Mean Corpuscular Hemoglobin 31.8 pg (27.0-33.0); Mean Corpuscular Volume 90.7 fL (80.0-98.0); Mean Platelet Volume 10.7 fL (9.4-12.4); Monocytes Absolute Auto 0.7 X10*3/uL (0.1-1.2); Monocytes Percent Auto 7.7 % (2-11); Neutrophils Absolute Auto 5.7 x10*3/uL (2.0-8.3); Neutrophils Percent Auto 65.2 % (45-73); Platelet Count 312 X10*3/uL (160-400); Red Blood Count 4.21 X10*6/uL (4.60-5.80); Red Cell Distribution Width 12.4 % (11.0-16.0); White Blood Count 8.7 X10*3/uL (4.8-10.8)
[2022-08-18 11:01] VITALS: BP 141/91; PULSE 98; RESP 20; TEMP 36.4; O2SAT 99
--- NOTE | 2022-08-18 11:02 | PC.NURSE ---
pt reports itching from rash on arms, neck and back. pt reports no pain at this time.
== END 2022-08-18 11:55 | disposition home or self-care (01) ==
PROVIDERS: Physician Assistant; Emergency Provider Emergency Medicine Emergency Medical Services; PCP Internal Medicine
DX: L30.9 Dermatitis, unspecified (principal); R21 Rash and other nonspecific skin eruption; Z79.899 Other long term (current) drug therapy
CPT/HCPCS: 36415; 80053; 85025; 85610; 85730; 99283; 99284

== ENCOUNTER 2022-10-23 08:41 | Outpatient (AMB) | payer MEDICARE, SELFPAY ==
--- NOTE | 2022-10-23 09:10 | MHC.OFFWIV ---
Intake Vital Signs 10/23/22 09:15 Height 6 ft 2 in Weight 226 lb BMI 29.0 BP 146/80 H Blood Pressure Location Rt brachial Position Sitting Pulse 78 Pulse Source Pulse Oximeter Temp 98.2 F Temp Source Temporal Artery Scan Pulse Oximetry (%) 98 Intake Visit Reasons: EST/rash on back Intake Note: pt is here for c/o on rash on back Patient Tobacco Use Status: Current everyday Tobacco user Allergies No Known Allergies [No Known Allergies*] Allergy (Verified 10/23/22 09:39) Medication List - Last Reconciled 10/23/22 by Ariel Dolan MD amlodipine 5 mg PO DAILY lisinopril 10 mg PO DAILY prednisone 60 mg (3 x 20 mg) PO DAILY 5 days triamcinolone acetonide 0.5% 1 appl topical BID 2 weeks Do you need a note to return to daycare/school/sports/work: Yes HPI EST/rash on back HPI Details 67-year-old male presents to the office for a sick visit. Patient has biopsy-proven spongiotic dermatitis. The rash is flared up in the last week. He is having persistent itching and discomfort. He has been seen in the emergency room for this condition in the past and given prednisone and steroid cream. He has an upcoming dermatology appointment [facility] Medical History (Updated 08/19/22 @ 00:09 by Mouna Hilario) Hypertension, uncontrolled Tinea corporis Multiple ecchymoses of both upper arms Polyarthralgia Anemia Spongiotic dermatitis Essential hypertension Alcohol use disorder Herniated disc Surgical History No pertinent past surgical history Family History Mother Diabetes mellitus Sister Diabetes mellitus Social History Housing: House Alcohol intake: current Alcohol intake frequency: holidays/special occasions only Alcohol type: beer Patient Tobacco Use Status: Current everyday Tobacco user Cigarette Packs Per Day: 10 e-Cigarette/Vaping Use: Never Used Advance Directives Date on File: 01/09/22 service: No Current occupational status: retired Cognitive needs: No Hearing needs: No Vision needs: No Physical Exam Vital Signs: Last Vital Signs Temp 98.2 F 10/23/22 09:15 Pulse 78 10/23/22 09:15 BP 146/80 H 10/23/22 09:15 Pulse Ox 98 10/23/22 09:15 BMI result Body Mass Index 29.0 Skin Other: Erythematous rash over the upper back and neck. No blisters. Scales over the rash. Assessment & Plan Assessment & Plan (1) Spongiotic dermatitis: Comment: ff'd by [place] [facility] Code(s): L30.8 - Other specified dermatitis Plan: Prednisone and triamcinolone called in. Patient was encouraged to follow-up with her primary care provider. Medications: Refilled triamcinolone acetonide 0.5% 1 appl topical BID 60 grams 0RF 2 weeks prednisone 60 mg (3 x 20 mg) PO DAILY 15 tabs 0RF 5 days Coding Level of Care Code Est Pt Level 3 (20936) Diagnoses Spongiotic dermatitis L30.8
[2022-10-23 09:15] VITALS: BP 146/80; PULSE 78; TEMP 36.8; O2SAT 98; BMI 29.0
== END 2022-10-23 09:58 | disposition home or self-care (01) ==
PROVIDERS: PCP Internal Medicine; Visit Provider Internal Medicine
DX: L30.8 Other specified dermatitis (principal)
CPT/HCPCS: 99213

== ENCOUNTER 2023-01-24 10:50 | Outpatient (AMB) | payer MEDICARE, SELFPAY ==
--- NOTE | 2023-01-24 11:20 | MHC.PC.OV ---
Intake Visit Reasons: SWV G0439 Allergies No Known Allergies [No Known Allergies*] Allergy (Verified 10/23/22 09:39) Tobacco use date assessed: 06/12/22 [facility] Medical History (Updated 08/19/22 @ 00:09 by Background Dagiancarlo) Hypertension, uncontrolled Tinea corporis Multiple ecchymoses of both upper arms Polyarthralgia Anemia Spongiotic dermatitis Essential hypertension Alcohol use disorder Herniated disc Surgical History No pertinent past surgical history Family History Mother Diabetes mellitus Sister Diabetes mellitus Social History Housing: House Alcohol intake: current Alcohol intake frequency: holidays/special occasions only Alcohol type: beer Patient Tobacco Use Status: Current everyday Tobacco user Cigarette Packs Per Day: 10 e-Cigarette/Vaping Use: Never Used Advance Directives Date on File: 01/09/22 service: No Current occupational status: retired Cognitive needs: No Hearing needs: No Vision needs: No Questionnaire Thrive Questionnaire Date Thrive assessed: 06/12/22 NERI-7 AMB Questionnaire NERI-7 Date NERI - 7 assessed: 06/12/22 Source: Developed by Drs. Bentley Marinelli, Mariana Charlton, John Young and colleagues, with an educational angela from [employer] Physical exam (Primary Care) Tobacco/Smoking Status: Tobacco use Status Tobacco use date assessed 06/12/22 06/12/22 10:49 Patient Tobacco Use Status Current everyday Tobacco 10/23/22 09:11 e-Cigarette/Vaping Use Never Used 06/12/22 10:49 Thrive Assessment: Date of Thrive Assessment Date Thrive assessed 06/12/22 06/23/22 08:13 Coding
[2023-01-24 11:22] VITALS: BP 130/88; PULSE 95; O2SAT 98; BMI 29.5
--- NOTE | 2023-01-24 11:22 | A.OFFVIS_ITS ---
Intake Vital Signs 01/24/23 11:22 Height 6 ft 2 in Weight 230 lb BMI 29.5 BP 130/88 Blood Pressure Location Rt brachial Position Sitting Pulse 95 Pulse Source Pulse Oximeter Pulse Oximetry (%) 98 Oxygen Delivery Method Room Air Intake Visit Reasons: SWV G0439 Allergies No Known Allergies [No Known Allergies*] Allergy (Verified 03/03/23 02:13) Medication List - Last Reconciled 03/03/23 by Tracy Lowry MD amlodipine 5 mg PO DAILY lisinopril 10 mg PO DAILY triamcinolone acetonide 0.5% 1 appl topical BID 2 weeks HPI SWV G0439 HPI Details SWV ? 67-year-old male hypertension, polyarthralgia, with spongiotic dermatitis with alcohol use disorder, presents for his subsequent? Annual Wellness Visit. He has had negative colon cancer screening done with Colog[facility] 05/14/2022, prostate cancer screening was done with total PSA negative at 1.13 a year ago. Up-to-date with his screening for cholesterol and diabetes, done earlier this year He does not want to get any vaccinations but had Tdap in 2021. ? Medical / Social History Reviewed? Past Medical History ?Yes . ? [place] of Care / Care Team list updated ?Yes . ? Surgical/Hospitalization History ?Yes . ? Current Medications (including OTC and supplements) ?Yes . ? Family History ?Yes . ? Tobacco Control form ?Yes . ? AUDIT-C (Alcohol use) form ?Yes . ? Illicit drug use in Social History ?Yes . ? Current diagnosis of depression? ?No ? Appropriate PHQ2/PHQ9 completed ?Yes . ? Data entered by ?Director Of Placement and reviewed by provider ? Fall Risk ? Fall History? Have you had any falls with injury in the past year? ?No . ? Have you had two or more falls in the past year? ?No . ? Fall Risk Assessment: ?No falls in the past year . ? HRA filled out by the patient, reviewed by Provider and scanned. ?? SWV ? Balance? [place]berg ?Yes . ? Tandem walk ?Yes . ? Walk and Turn ?Yes . ? Rise from sit to stand ?Yes . ?Vision? Corrective lens ?Yes ? Vision screen ?overdue for vision screening, reminded to schedule appointment with Ophthalmology ?Hearing? Whisper test :?failed . ?Written Plan?Completed. See Patient Documents.? [facility] Medical History (Updated 03/03/23 @ 02:20 by Tracy Lowry MD) Tinea corporis Multiple ecchymoses of both upper arms Polyarthralgia Anemia Spongiotic dermatitis Essential hypertension Herniated disc Surgical History No pertinent past surgical history Family History Mother Diabetes mellitus Sister Diabetes mellitus Social History Housing: House Alcohol intake: current Alcohol intake frequency: holidays/special occasions only Alcohol type: beer Patient Tobacco Use Status: Current everyday Tobacco user Cigarette Packs Per Day: 10 e-Cigarette/Vaping Use: Never Used Advance Directives Date on File: 01/09/22 service: No Current occupational status: retired Cognitive needs: No Hearing needs: No Vision needs: No Questionnaire Medicare Wellness Checkup What [age] What gender do you identify with?: male During the past 4 weeks, how much have you been bothered by emotional problems such as feeling anxious, depressed, irritable, sad or downhearted, and blue?: not at all During the past 4 weeks, has your physical & emotional health limited your social activities with family, friends, neighbors, or groups?: not at all During the past 4 weeks, how much bodily pain have you generally had?: very mild pain During the past 4 weeks, was someone available to help you if you needed & wanted help?: yes, quite a bit During the past 4 weeks, what was the hardest physical activity you could do for at least 2 minutes?: heavy Can you get to places out of walking distance without help? (For eg., can you travel alone on buses, taxis or drive your car?): Yes Can you go shopping for groceries or clothes without someone's help?: Yes Can you prepare your own meals?: Yes Can you do your housework without help?: Yes Because of any health problems, do you need the help of another person with your personal care needs such as eating, bathing, dressing or getting around the house?: No Can you handle your own money without help?: Yes During the past 4 weeks, how would you rate your health in general?: very good During the past 4 weeks how have things been going for you?: pretty well Are you having difficulties driving your car?: no During past 4 weeks, have you been bothered by the following: never: Falling or dizzy when standing up, Trouble eating well? and Problems using the telephone?, seldom: Teeth or denture problems? and Tiredness or fatigue? and sometimes: Sexual problems? Have you fallen 2 or more times in the past year?: No Are you afraid of falling?: No Are you a smoker?: yes, and I might quit During the past 4 weeks, how many drinks of wine, beer, or other alcoholic beverages did you have?: 6-9 drinks per week Do you exercise for about 20 minutes 3 or more times a week?: no, I usually do not exercise this much Have you been given information to help with the following?: no: Hazards in your house that might hurt you? and no: Keeping track of your medications? How often do you have trouble taking medicines the way you have been told to take them?: I always take medicine as prescribed How confident are you that you can control & manage most of your health problems?: somewhat confident What is your race?: White Mini Mental State Exam (MMSE) Orientation What is the (year) (season) (date) (day) (month)?: year (2022), season (fall), date (01/24/2023), day (Sunday) and month (January) Where are we (state) (county) (town or city) (hospital) (floor)?: state ([facility]), county ([place]), town or city ([place]) and hospital/clinic ([facility]) Score Score: 9 Activity of Daily Living Bathing - sponge bath, tub bath or shower: receives no assistance (gets in/out by self, if usual bathing means Dressing - getting clothes from closets & drawers, including inner/outer garments & fasteners.: gets clothes & gets completely dressed without help Toileting - going to the 'toilet room' for urine/bowel elimination & cleaning self/arranging clothes: goes to toilet room, cleans self, arranges clothes without help Transfer: moves in & out of bed and chair without help (may use support object) Continence: controls urination/bowel movements completely by self Feeding: feeds self without help Total Score: 0 Information obtained from: patient Using telephone: independent Traveling: independent Shopping: independent Preparing meals: independent Housework: independent Taking medicine: independent Managing money: independent PHQ-9 Over the last 2 weeks, how often have you been bothered by any of the following problems? 1. Little interest or pleasure in doing things: not at all 2. Feeling down, depressed, or hopeless: not at all 3. Trouble falling or staying asleep, or sleeping too much: not at all 4. Feeling tired or having little energy: more than half the days 5. Poor appetite or overeating: not at all 6. Feeling bad about yourself - or that you are a failure or have let yourself or your family down: not at all 7. Trouble concentrating on things, such as reading the newspaper or watching television: not at all 8. Moving or speaking so slowly that other people could have noticed. Or the opposite - being so fidgety or restless that you have been moving around a lot more than usual: not at all 9. Thoughts that you would be better off or of hurting yourself in some way: not at all Total score: 2 Depression Screening Interpretation: Negative Depression Screening Done: Yes 66188 - PHQ-9 Billing: Yes Source: Developed by Drs. Bentley Marinelli, Mariana Charlton, John Young and colleagues, with an educational angela from [employer]. Physical Exam Vital Signs: Last Vital Signs Pulse 95 01/24/23 11:22 BP 130/88 01/24/23 11:22 Pulse Ox 98 01/24/23 11:22 Oxygen Delivery Method Room Air 01/24/23 11:22 BMI result Body Mass Index 29.5 Assessment & Plan Assessment & Plan (1) Encounter for subsequent annual wellness visit (AWV) in Medicare patient: Code(s): Z00.00 - Encounter for general adult medical examination without abnormal findings Plan: Medical wellness checklist discussed, reviewed with patient and updated. D eclines getting any vaccinations, up-to-date with colon cancer screening prostate check. (2) Essential hypertension: Code(s): I10 - Essential (primary) hypertension Plan: Blood pressure at goal of less than 130/80. Currently takes amlodipine 5 mg daily and lisinopril 10 mg daily Reinforced importance of following a low sodium diet, getting regular exercise, and lowering stress levels. (3) Spongiotic dermatitis: Comment: ff'd by [place] [facility] Code(s): L30.8 - Other specified dermatitis Plan: Followed by dermatome (4) Anemia: Code(s): D64.9 - Anemia, unspecified Plan: Advised to return iron rich diet green leafy vegetables and lean meat (5) Advanced directives, counseling/discussion: Code(s): Z71.89 - Other specified counseling Plan: Initiated the conversation about Advanced Directives. Advanced Directives help patients prepare for current and future decisions about their medical treatment and place of care. Discussed with patient that it is a process where a patients current condition and prognosis are reviewed, their wishes for information regarding their illness are elicited, and likely medical dilemmas are presented and options discussed. Healthcare proxy form and MOLST form completed today. These forms can be amended as needed, reviewed yearly and make changes as needed Quality Reporting (2019) Depression/Bipolar (159/160/161/177) PHQ-9: Total score: 2 Coding Level of Care Code Medicare Subsequent (G0439) Diagnoses Encounter for subsequent annual wellness visit (AWV) in Medicare patient Z00.00 Essential hypertension I10 Spongiotic dermatitis L30.8 Anemia D64.9 Advanced directives, counseling/discussion Z71.89 CPT Codes Advance Care Planning - Time spent: 1-15 minutes, on File ([id number]) Advance Care Planning Date of discussion: 01/24/23 Who was present: Patient Forms completed: Health Care Proxy and MOLST Time spent: 1-15 minutes, on File Actual minutes spent: 15
== END 2023-01-24 13:29 | disposition home or self-care (01) ==
PROVIDERS: PCP Internal Medicine; Visit Provider Internal Medicine
DX: Z00.00 Encounter for general adult medical examination without abnormal findings (principal); I10 Essential (primary) hypertension; L30.8 Other specified dermatitis; D64.9 Anemia, unspecified; Z71.89 Other specified counseling
CPT/HCPCS: 1123F; G0439

== ENCOUNTER 2023-07-31 09:23 | Outpatient (AMB) | payer MEDICARE, SELFPAY ==
[2023-07-31 10:10] VITALS: BP 138/86; PULSE 94; O2SAT 98; BMI 28.8
--- NOTE | 2023-07-31 10:10 | MHC.PC.OV ---
Vital Signs 07/31/23 10:10 Height 6 ft 2 in Weight 224 lb BMI 28.8 BP 138/86 Blood Pressure Location Rt brachial Position Sitting Pulse 94 Pulse Source Pulse Oximeter Pulse Oximetry (%) 98 Oxygen Delivery Method Room Air Intake Visit Reasons: 6 month fu Intake Note: Pt is here today for his 6 mo. f/u Allergies No Known Allergies [No Known Allergies*] Allergy (Verified 07/31/23 10:25) Medication List - Last Reconciled 07/31/23 by Tracy Lowry MD amlodipine 5 mg PO DAILY lisinopril 10 mg PO DAILY triamcinolone acetonide 0.5% 1 appl topical BID 2 weeks Tobacco use date assessed: 07/31/23 Fall risk assessment: No Falls in past year Last assessed Fall Risk: 07/31/23 Dental Screening Dental Screen Date: 07/31/23 Did you have a dental visit in the last 12 months?: No Was dental information given to patient?: Patient declined HPI 6 month fu HPI Details 68-year-old male with hypertension, currently on amlodipine and lisinopril, here today for his follow-up. He has been feeling well, blood pressure stable and controlled on present treatment. [facility] Medical History (Updated 08/01/23 @ 03:51 by Tracy Lowry MD) Vaccination refused by patient Smokes one pack per day or less and unmotivated to quit Elevated low density lipoprotein (LDL) cholesterol level Tinea corporis Polyarthralgia Anemia Spongiotic dermatitis Essential hypertension Herniated disc Surgical History No pertinent past surgical history Family History Mother Diabetes mellitus Sister Diabetes mellitus Social History Housing: House Alcohol intake: current Alcohol intake frequency: holidays/special occasions only Alcohol type: beer Patient Tobacco Use Status: Current everyday Tobacco user Cigarette Packs Per Day: 10 e-Cigarette/Vaping Use: Never Used Advance Directives Date on File: 01/09/22 service: No Current occupational status: retired Cognitive needs: No Hearing needs: No Vision needs: No Questionnaire PHQ-9 Over the last 2 weeks, how often have you been bothered by any of the following problems? 1. Little interest or pleasure in doing things: not at all 2. Feeling down, depressed, or hopeless: not at all 3. Trouble falling or staying asleep, or sleeping too much: not at all 4. Feeling tired or having little energy: not at all 5. Poor appetite or overeating: not at all 6. Feeling bad about yourself - or that you are a failure or have let yourself or your family down: not at all 7. Trouble concentrating on things, such as reading the newspaper or watching television: not at all 8. Moving or speaking so slowly that other people could have noticed. Or the opposite - being so fidgety or restless that you have been moving around a lot more than usual: not at all 9. Thoughts that you would be better off or of hurting yourself in some way: not at all Total score: 0 Depression Screening Interpretation: Negative Depression Screening Done: Yes 31938 - PHQ-9 Billing: Yes Source: Developed by Drs. Bentley Marinelli, John Byrne and colleagues, with an educational angela from [employer]. Thrive Questionnaire Date Thrive assessed: 06/12/22 AUDIT C Alcohol Use Questionnaire (AUDIT-C) 1. How often do you have a drink containing alcohol?: Never Total Score: 0 NEIR-7 AMB Questionnaire NERI-7 Date NERI - 7 assessed: 07/31/23 Feeling nervous, anxious, or on edge: 0 = Not at all Not being able to stop or control worryin = Not at all Worrying too much about different things: 0 = Not at all Trouble relaxin = Not at all Being so restless that it is hard to sit still: 0 = Not at all Becoming easily annoyed or irritable: 0 = Not at all Feeling afraid as if something awful might happen: 0 = Not at all Total NERI-7 score (0-4 normal; 5-9 mild; 10-14 moderate; 15-21 severe): 0 Source: Developed by Drs. Bentley Marinelli, John Byrne and colleagues, with an educational angela from [employer]. NERI-7 Assessment Billing NERI-7 Assessment Tool: NERI-7 Assessment 63367 Review of Systems Const Denies body aches, Denies fever(s) and Denies malaise Eyes Denies change in vision ENT Denies dizziness and Denies sore throat Card Reports no additional complaints Resp Reports no additional complaints GI Denies abdominal pain and Denies change in bowel habits Reports no additional complaints Musc Reports as per HPI Skin/Breast Reports as per HPI Neuro Reports no additional complaints and Denies dizziness Psych Reports no additional complaints Endo Reports no additional complaints Uriel/Lymph Reports no additional complaints Aller/Immun Reports no additional complaints Physical exam (Primary Care) Vital Signs: Last Vital Signs Pulse 94 07/31/23 10:10 BP 138/86 07/31/23 10:10 Pulse Ox 98 07/31/23 10:10 Oxygen Delivery Method Room Air 07/31/23 10:10 BMI result Body Mass Index 28.8 Tobacco/Smoking Status: Tobacco use Status Tobacco use date assessed 07/31/23 07/31/23 10:12 Patient Tobacco Use Status Current everyday Tobacco 07/31/23 10:12 e-Cigarette/Vaping Use Never Used 07/31/23 10:12 Are you ready to quit: No Tobacco cessation counseling provided: Yes PHQ-9: PHQ-9 Score PHQ-9: Total score 0 07/31/23 10:35 Depression Screening Interpretation: Negative Thrive Assessment: Date of Thrive Assessment Date Thrive assessed 06/12/22 07/31/23 10:12 Const Other: Alert oriented x3, no acute distress noted Nutritional Appearance: average body habitus HENMT Head: Yes normocephalic and Yes atraumatic Mouth: Normal oral and palatal mucosa present Neck Neck: Yes full ROM, Yes no lymphadenopathy and Yes supple Resp Effort & Inspection: normal respiratory effort and able to speak in complete sentences Auscultation: clear to auscultation bilaterally Cardio Rate: regular rate Rhythm: regular rhythm Heart sounds: S1 normal heart sound present and S2 normal heart sound present GI Palpation (GI): Soft to palpation, nontender, no guarding and no masses Auscultation: normal bowel sounds Skin Other: Scattered erythematous rash on forearms Neuro General: gait normal, moves all extremities and no focal motor deficits Extrem General: Yes full ROM, Yes no joint enlargement, Yes no pedal edema, Yes no calf tenderness and Yes normal gait Psych Appearance: grossly normal and well kempt Mental Status: mental status grossly normal Speech and movement: Normal speech and movement present Affect: normal affect Assessment and Plan Assessment & Plan (1) Essential hypertension: Code(s): I10 - Essential (primary) hypertension Plan: Continue with amlodipine and lisinopril, but advised to take amlodipine at night or prevent pedal edema , ordered electrolytes and renal function check (2) Anemia: Code(s): D64.9 - Anemia, unspecified Qualifiers: Anemia type: unspecified type Qualified Code(s): D64.9 - Anemia, unspecified Plan: Ordered CBC and iron profile (3) Elevated low density lipoprotein (LDL) cholesterol level: Code(s): E78.00 - Pure hypercholesterolemia, unspecified Plan: Fasting lipid panel ordered (4) Prostate cancer screening: Code(s): Z12.5 - Encounter for screening for malignant neoplasm of prostate Plan: Will check PSA (5) Smokes one pack per day or less and unmotivated to quit: Code(s): F17.210 - Nicotine dependence, cigarettes, uncomplicated Plan: Patient strongly advised to stop smoking, as smoking damages blood vessels, degenerative of joints and spine, damage to lungs and heart., predisposes to developing certain cancers like lung, breast, bladder, colon. Recommended to try decreasing cigarette use by 1-2 cigarettes a day. Advised to monitor what triggers are for smoking so that this can be discussed on the next office visit. We can discuss different options to quit smoking when ready. (6) Vaccination refused by patient: Code(s): Z28.21 - Immunization not carried out because of patient refusal Plan: Does not want to get any vaccination Orders: Orders Lipid Panel 07/31/23 D64.9 - Anemia, unspecified, E78.00 - Pure hypercholesterolemia, unspecified, I10 - Essential (primary) hypertension, Z12.5 - Encounter for screening for malignant neoplasm of prostate Aspartate Amino Transferase 07/31/23 D64.9 - Anemia, unspecified, E78.00 - Pure hypercholesterolemia, unspecified, I10 - Essential (primary) hypertension, Z12.5 - Encounter for screening for malignant neoplasm of prostate Complete Blood Count Auto Diff 07/31/23 D64.9 - Anemia, unspecified, E78.00 - Pure hypercholesterolemia, unspecified, I10 - Essential (primary) hypertension, Z12.5 - Encounter for screening for malignant neoplasm of prostate IRON PROFILE 07/31/23 D64.9 - Anemia, unspecified, E78.00 - Pure hypercholesterolemia, unspecified, I10 - Essential (primary) hypertension, Z12.5 - Encounter for screening for malignant neoplasm of prostate Basic Metabolic Panel Fasting 07/31/23 D64.9 - Anemia, unspecified, E78.00 - Pure hypercholesterolemia, unspecified, I10 - Essential (primary) hypertension, Z12.5 - Encounter for screening for malignant neoplasm of prostate Alanine Aminotransferase 07/31/23 D64.9 - Anemia, unspecified, E78.00 - Pure hypercholesterolemia, unspecified, I10 - Essential (primary) hypertension, Z12.5 - Encounter for screening for malignant neoplasm of prostate PSA,Total (Free>4and<10) 07/31/23 D64.9 - Anemia, unspecified, E78.00 - Pure hypercholesterolemia, unspecified, I10 - Essential (primary) hypertension, Z12.5 - Encounter for screening for malignant neoplasm of prostate Medications: Refilled amlodipine 5 mg PO DAILY 90 tabs 1RF lisinopril 10 mg PO DAILY 90 tabs 1RF Coding Level of Care Code Est Pt Level 4 (69722) Complex EM visit Add On G2211 Diagnoses Essential hypertension I10 Anemia, unspecified type D64.9 Anemia type: unspecified type Elevated low density lipoprotein (LDL) cholesterol level E78.00 Prostate cancer screening Z12.5 Smokes one pack per day or less and unmotivated to quit F17.210 Vaccination refused by patient Z28.21 Additional Codes NERI-7 Assessment Billing - NERI-7 Assessment Tool: NERI-7 Assessment 30826 ([id number])
== END 2023-07-31 12:46 | disposition home or self-care (01) ==
PROVIDERS: PCP Internal Medicine; Visit Provider Internal Medicine
DX: I10 Essential (primary) hypertension (principal); D64.9 Anemia, unspecified; F17.210 Nicotine dependence, cigarettes, uncomplicated; E78.00 Pure hypercholesterolemia, unspecified; Z12.5 Encounter for screening for malignant neoplasm of prostate; Z28.21 Immunization not carried out because of patient refusal
CPT/HCPCS: 99214; G2211

== ENCOUNTER 2023-07-31 10:34 | Outpatient (REF) | payer MEDICARE, SELFPAY ==
[2023-07-31 13:07] LABS: MANUAL DIFF FLAG NO
[2023-07-31 13:30] LABS: Basophils Percent Auto 0.4 % (0-2); Eosinophils Absolute Auto 0.3 X10*3/uL (0.0-0.4); Eosinophils Percent Auto 2.9 % (0-4); Hematocrit 41.5 % (42.0-52.0); Hemoglobin 14.3 g/dl (14.0-18.0); Imm Gran Abs Auto 0.04 X10*3/uL (0.00-0.03); Imm Gran Pct Auto 0.4 % (0.0-0.4); Lymphocytes Absolute Auto 1.9 X10*3/uL (1.2-4.9); Lymphocytes Percent Auto 19.9 % (20-40); Mean Corpuscular HGB Conc 34.5 g/dl (31.0-36.0); Mean Corpuscular Hemoglobin 31.2 pg (27.0-33.0); Mean Corpuscular Volume 90.6 fL (80.0-98.0); Mean Platelet Volume 11.3 fL (9.4-12.4); Monocytes Absolute Auto 0.8 X10*3/uL (0.1-1.2); Monocytes Percent Auto 8.8 % (2-11); Neutrophils Absolute Auto 6.5 x10*3/uL (2.0-8.3); Neutrophils Percent Auto 67.6 % (45-73); Platelet Count 315 X10*3/uL (160-400); Red Blood Count 4.58 X10*6/uL (4.60-5.80); White Blood Count 9.6 X10*3/uL (4.8-10.8)
[2023-07-31 14:00] LABS: PSA,Total (Free>4and<10) 1.67 ng/mL (0.00-4.00)
[2023-07-31 14:02] LABS: Alanine Aminotransferase 15 U/L (0-40); Anion Gap 13 (12-20); Aspartate Amino Transferase 14 U/L (5-37); Blood Urea Nitrogen 11 mg/dL (9-16); Calcium 9.8 mg/dL (8.4-10.2); Carbon Dioxide 24 mmol/L (22-29); Chloride 104 mmol/L (96-108); Cholesterol 175 mg/dL (<200); Estimated Glomerular Filt Rate > 60; Glucose Fasting 100 mg/dL (60-99); HDL Cholesterol 46 mg/dL (>40); Iron 110 mcg/dL (45-160); LDL Cholesterol Calculated 98 mg/dL (<100); Percent Iron Saturation 40 % (15-50); Potassium 5.1 mmol/L (3.3-5.1); Sodium 136 mmol/L (135-145); Total Iron Binding Capacity 276 mcg/dL (228-428); Triglycerides 159 mg/dL (<150); Unsaturated Iron Binding 166 ug/dL
== END 2023-07-31 10:35 | disposition home or self-care (01) ==
LOC: HO.HMGCLDS 10:34
PROVIDERS: PCP Internal Medicine; Visit Provider Internal Medicine
DX: I10 Essential (primary) hypertension (principal); E78.00 Pure hypercholesterolemia, unspecified; D64.9 Anemia, unspecified; Z12.5 Encounter for screening for malignant neoplasm of prostate
CPT/HCPCS: 36415; 80048; 80061; 83540; 84153; 84450; 84460; 85025

== ENCOUNTER 2024-01-29 08:22 | Outpatient (AMB) | payer MEDICARE, SELFPAY ==
[2024-01-29 08:45] VITALS: BP 132/80; PULSE 99; O2SAT 98; BMI 28.2
--- NOTE | 2024-01-29 08:45 | AM.OFFVISMDC ---
Intake Vital Signs 01/29/24 08:45 Height 6 ft 2 in Weight 220 lb BMI 28.2 BP 132/80 Blood Pressure Location Rt brachial Position Sitting Pulse 99 Pulse Source Pulse Oximeter Pulse Oximetry (%) 98 Oxygen Delivery Method Room Air Intake Visit Reasons: SWV G0439 Intake Note: Pt is here today for his SWV: Last cologuard 05/14/22 Allergies No Known Allergies [No Known Allergies*] Allergy (Verified 01/29/24 09:06) Medication List - Last Reconciled 01/29/24 by Tracy Lowry MD amlodipine 5 mg PO DAILY lisinopril 10 mg PO DAILY triamcinolone acetonide 0.5% 1 appl topical BID 2 weeks HPI SWV G0439 HPI Details SWV ? 68-year-old male hypertension, polyarthralgia, with spongiotic dermatitis with alcohol use disorder, presents for his subsequent? Annual Wellness Visit. He has had negative colon cancer screening done with Cologuard 05/14/2022, prostate cancer screening was done with total PSA normal 07/31/23. Up-to-date with his screening for cholesterol and diabetes, done earlier this year the same day as well with results within normal limits , except for triglycerides at 159 mg/dl and fasting glucose at 100 mg/dl He does not want to get any vaccinations but had Tdap in 2021. ? Medical / Social History Reviewed? Past Medical History ?Yes . ? [place] of Care / Care Team list updated ?Yes . ? Surgical/Hospitalization History ?Yes . ? Current Medications (including OTC and supplements) ?Yes . ? Family History ?Yes . ? Tobacco Control form ?Yes . ? AUDIT-C (Alcohol use) form ?Yes . ? Illicit drug use in Social History ?Yes . ? Current diagnosis of depression? ?No ? Appropriate PHQ2/PHQ9 completed ?Yes . ? Data entered by ?Master Certified Rv Technician and reviewed by provider ? Fall Risk ? Fall History? Have you had any falls with injury in the past year? ?No . ? Have you had two or more falls in the past year? ?No . ? Fall Risk Assessment: ?No falls in the past year . ? HRA filled out by the patient, reviewed by Provider and scanned. ?? SWV ? Balance? Romberg ?negative. ? Tandem walk ?Yes . ? Walk and Turn ?Yes . ? Rise from sit to stand ?Yes . ?Vision? Corrective lens ?Yes, wears 'cheater ? Vision screen ?sees [facility] ?Hearing? Whisper test :?pass ?Written Plan?Completed. See Patient Documents.? HPI Comments History of Present Illness Details ? [facility] Medical History (Updated 01/29/24 @ 09:28 by Tracy Lowry MD) Vaccination refused by patient Smokes one pack per day or less and unmotivated to quit Elevated low density lipoprotein (LDL) cholesterol level Polyarthralgia Spongiotic dermatitis Essential hypertension Herniated disc Surgical History No pertinent past surgical history Family History Mother Diabetes mellitus Sister Diabetes mellitus Social History Housing: House Alcohol intake: current Alcohol intake frequency: holidays/special occasions only Alcohol type: beer Patient Tobacco Use Status: Current everyday Tobacco user Cigarette Packs Per Day: 10 e-Cigarette/Vaping Use: Never Used Advance Directives Date on File: 01/09/22 service: No Current occupational status: retired Cognitive needs: No Hearing needs: No Vision needs: No Questionnaire Medicare Wellness Checkup [age] What gender do you identify with?: male During the past 4 weeks, how much have you been bothered by emotional problems such as feeling anxious, depressed, irritable, sad or downhearted, and blue?: not at all During the past 4 weeks, has your physical & emotional health limited your social activities with family, friends, neighbors, or groups?: not at all During the past 4 weeks, how much bodily pain have you generally had?: very mild pain During the past 4 weeks, was someone available to help you if you needed & wanted help?: yes, as much as I wanted During the past 4 weeks, what was the hardest physical activity you could do for at least 2 minutes?: moderate Can you get to places out of walking distance without help? (For eg., can you travel alone on buses, taxis or drive your car?): Yes Can you go shopping for groceries or clothes without someone's help?: Yes Can you prepare your own meals?: Yes Can you do your housework without help?: Yes Because of any health problems, do you need the help of another person with your personal care needs such as eating, bathing, dressing or getting around the house?: No Can you handle your own money without help?: Yes During the past 4 weeks, how would you rate your health in general?: very good During the past 4 weeks how have things been going for you?: pretty well Are you having difficulties driving your car?: no Do you always fasten your seat belt when you are in a car?: yes, usually During past 4 weeks, have you been bothered by the following: never: Falling or dizzy when standing up, Sexual problems?, Trouble eating well?, Teeth or denture problems?, Problems using the telephone? and Tiredness or fatigue? Have you fallen 2 or more times in the past year?: No Are you afraid of falling?: No Are you a smoker?: yes, and I might quit During the past 4 weeks, how many drinks of wine, beer, or other alcoholic beverages did you have?: 1 drink or less per week Do you exercise for about 20 minutes 3 or more times a week?: no, I usually do not exercise this much Have you been given information to help with the following?: no: Hazards in your house that might hurt you? and no: Keeping track of your medications? How often do you have trouble taking medicines the way you have been told to take them?: I always take medicine as prescribed How confident are you that you can control & manage most of your health problems?: very confident What is your race?: White Mini Mental State Exam (MMSE) Orientation What is the (year) (season) (date) (day) (month)?: year (2023), season (fall), date (01/29/2024), day (sunday) and month (January) Where are we (state) (county) (town or city) (hospital) (floor)?: state ([place]), [facility] ([place]), town or city ([place]) and hospital/clinic ([facility]) Score Score: 9 Activity of Daily Living Bathing - sponge bath, tub bath or shower: receives no assistance (gets in/out by self, if usual bathing means Dressing - getting clothes from closets & drawers, including inner/outer garments & fasteners.: gets clothes & gets completely dressed without help Toileting - going to the 'toilet room' for urine/bowel elimination & cleaning self/arranging clothes: goes to toilet room, cleans self, arranges clothes without help Transfer: moves in & out of bed and chair without help (may use support object) Continence: controls urination/bowel movements completely by self Feeding: feeds self without help Total Score: 0 Information obtained from: patient Using telephone: independent Traveling: independent Shopping: independent Preparing meals: independent Housework: independent Taking medicine: independent Managing money: independent PHQ-9 Over the last 2 weeks, how often have you been bothered by any of the following problems? 1. Little interest or pleasure in doing things: not at all 2. Feeling down, depressed, or hopeless: not at all 3. Trouble falling or staying asleep, or sleeping too much: not at all 4. Feeling tired or having little energy: not at all 5. Poor appetite or overeating: not at all 6. Feeling bad about yourself - or that you are a failure or have let yourself or your family down: not at all 7. Trouble concentrating on things, such as reading the newspaper or watching television: not at all 8. Moving or speaking so slowly that other people could have noticed. Or the opposite - being so fidgety or restless that you have been moving around a lot more than usual: not at all 9. Thoughts that you would be better off or of hurting yourself in some way: not at all Total score: 0 Depression Screening Interpretation: Negative Depression Screening Done: Yes 25075 - PHQ-9 Billing: Yes Source: Developed by Drs. Bentley Marinelli, Mariana Charlton, John Young and colleagues, with an educational angela from [employer]. Physical Exam Vital Signs: Last Vital Signs Pulse 99 01/29/24 08:45 BP 132/80 01/29/24 08:45 Pulse Ox 98 01/29/24 08:45 Oxygen Delivery Method Room Air 01/29/24 08:45 BMI result Body Mass Index 28.2 Assessment & Plan Assessment & Plan (1) Encounter for subsequent annual wellness visit (AWV) in Medicare patient: Code(s): Z00.00 - Encounter for general adult medical examination without abnormal findings Plan: medical wellness checklist reviewed , discussed with patient and updated (2) Essential hypertension: Code(s): I10 - Essential (primary) hypertension Plan: continue lisinopril and amlodipine (3) Smokes one pack per day or less and unmotivated to quit: Code(s): F17.210 - Nicotine dependence, cigarettes, uncomplicated Plan: Patient strongly advised to stop smoking, as smoking damages blood vessels, degenerative of joints and spine, damage to lungs and heart., predisposes to developing certain cancers like lung, breast, bladder, colon. Recommended to try decreasing cigarette use by 1-2 cigarettes a day. Advised to monitor what triggers are for smoking so that this can be discussed on the next office visit. We can discuss different options to quit smoking when ready. (4) Vaccination refused by patient: Code(s): Z28.21 - Immunization not carried out because of patient refusal Plan: declines recommended vaccines Quality Reporting (2019) Depression/Bipolar (159/160/161/177) PHQ-9: Total score: 0 Coding Level of Care Code Medicare Subsequent (G0439) Diagnoses Encounter for subsequent annual wellness visit (AWV) in Medicare patient Z00.00 Essential hypertension I10 Smokes one pack per day or less and unmotivated to quit F17.210 Vaccination refused by patient Z28.21 CPT Codes Advance Care Planning - Advance Care Planning discussion: On file, no changes ([id number]) Advance Care Planning - Time spent: 1-15 minutes, on File ([id number]) Additional Codes PHQ-9 - 69255 - PHQ-9 Billing: Yes ([id number]) Advance Care Planning Advance Care Planning discussion: On file, no changes Date of discussion: 01/29/24 Who was present: patient Forms completed: Health Care Proxy and MOLST Time spent: 1-15 minutes, on File Actual minutes spent: 1
== END 2024-01-29 09:26 | disposition home or self-care (01) ==
PROVIDERS: PCP Internal Medicine; Visit Provider Internal Medicine
DX: Z00.00 Encounter for general adult medical examination without abnormal findings (principal); I10 Essential (primary) hypertension; F17.210 Nicotine dependence, cigarettes, uncomplicated; Z28.21 Immunization not carried out because of patient refusal

== ENCOUNTER → 2024-01-29 08:22 | Outpatient (BNVA) | payer MEDICARE, SELFPAY | PROVIDERS: PCP Internal Medicine; Visit Provider Internal Medicine | DX: Z00.00 Encounter for general adult medical examination without abnormal findings (principal); I10 Essential (primary) hypertension; M25.50 Pain in unspecified joint; F17.210 Nicotine dependence, cigarettes, uncomplicated; Z28.21 Immunization not carried out because of patient refusal | CPT/HCPCS: 96127 ==

== ENCOUNTER 2024-02-06 10:26 | Emergency (ER) | payer MEDICARE, SELFPAY ==
--- NOTE | ~2024-02-06 | US_ITS ---
EXAMINATION: US NONINVASIVE ASSESSMENT OF THE RIGHT LOWER EXTREMITY WITH ARTERIAL DUPLEX CLINICAL INFORMATION: Right lower extremity pain and numbness. COMPARISON: None available. TECHNIQUE: Real-time duplex on the examination of the right lower extremity arterial system was performed from the level of the common femoral artery to the ankle. FINDINGS: Right lower extremity peak systolic velocities (cm/s): Common femoral artery: 99 Profunda femoral artery: 118 Proximal superficial femoral artery: No flow identified. Mid superficial femoral artery: No flow identified. Distal superficial femoral artery: No flow identified. Proximal popliteal artery: 41 Distal popliteal artery: No flow identified. Proximal anterior tibial artery: 12 Peroneal artery: No flow identified. Posterior tibial artery: No flow identified. Dorsalis pedis artery: 13 Grayscale and color Doppler imaging of the right lower extremity demonstrates triphasic flow in the common femoral and profunda femoral arteries, biphasic flow in the proximal popliteal artery, and monophasic flow within the anterior tibial artery/dorsalis pedis artery. US/US arterial duplex LE RT IMPRESSION: Findings suggesting occlusion of the right superficial femoral artery, distal popliteal artery, peroneal artery, and posterior tibial artery. Suspect reconstitution of the proximal popliteal artery for a short segment as well as reconstitution of the anterior tibial artery/dorsalis pedis, which demonstrate diminished flow. Electronically signed by: Barber Fried MD 02/06/2024 12:37 PM [facility]
--- NOTE | ~2024-02-06 | US_ITS ---
EXAMINATION: US TRIPLEX LOWER EXTREMITY, RIGHT CLINICAL INFORMATION: Right lower extremity pain. COMPARISON: None available. TECHNIQUE: Color-flow triplex imaging with spectral analysis and compression Doppler were performed on the right lower extremity. FINDINGS: Respiratory variation, normal compression and augmented flow are noted throughout the right lower extremity. The visualized common femoral vein, superficial femoral vein, profunda femoral vein, popliteal vein and midcalf peroneal and posterior tibial venous segments show no evidence of deep venous thrombosis. There is no Curry's cyst. US/US venous duplex LE RT IMPRESSION: No evidence of deep venous thrombosis involving the right lower extremity. Electronically signed by: Barber Fried MD 02/06/2024 12:25 PM EST
--- NOTE | ~2024-02-06 | XR_ITS ---
EXAMINATION:XR CALCANEUS 2 VIEWS RIGHT, XR FOOT 3 OR MORE VIEWS RIGHT VIEWS ACQUIRED: Frontal lateral and oblique CLINICAL INFORMATION: heel pain COMPARISON: None available at the time of this dictation. FINDINGS: There is no evidence of acute fracture or dislocation. Intertarsal, tarsometatarsal, metatarsophalangeal and interphalangeal joints are intact. Surrounding soft tissues is normal. , Calcaneus is intact. There are small posterior and inferior calcaneal spurs. XR/XR foot RT min 3V IMPRESSION: 1. Small posterior and inferior calcaneal spurs. 2. No fracture. Electronically signed by: Andreia Giron MD 02/06/2024 11:38 AM [facility]
--- NOTE | ~2024-02-06 | XR_ITS ---
EXAMINATION:XR CALCANEUS 2 VIEWS RIGHT, XR FOOT 3 OR MORE VIEWS RIGHT VIEWS ACQUIRED: Frontal lateral and oblique CLINICAL INFORMATION: heel pain COMPARISON: None available at the time of this dictation. FINDINGS: There is no evidence of acute fracture or dislocation. Intertarsal, tarsometatarsal, metatarsophalangeal and interphalangeal joints are intact. Surrounding soft tissues is normal. , Calcaneus is intact. There are small posterior and inferior calcaneal spurs. XR/XR calcaneus RT min 2V IMPRESSION: 1. Small posterior and inferior calcaneal spurs. 2. No fracture. Electronically signed by: Andreia Giron MD 02/06/2024 11:38 AM [facility]
[2024-02-06 10:35] VITALS: BP 169/99; PULSE 104; RESP 18; TEMP 36.6; O2SAT 100; BMI 28.5
--- NOTE | 2024-02-06 11:04 | ED.LOWEXIN ---
HPI - Extremity Injury (Lower) General Chief Complaint: Extremity Injury, Lower Stated Complaint: R foot pain Time Seen by Provider: 02/06/24 10:43 Source: patient, RN notes reviewed and old records reviewed Mode of arrival: ambulatory History of Present Illness ED Provider: Jeanette Ford PA-C HPI Narrative: 68-year-old male with a past medical history of spondylotic dermatitis, HTN, polyarthralgia, HLD, presenting to the ED complaining of RLE pain radiating from knee to toes with associated numbness x3-4 weeks. Reports difficulty sleeping secondary to pain. Pain exacerbated with walking up the stairs. Denies anticoagulation use, known injury/ trauma or fall, CP/ SOB, history of clots. admits saw PCP recently for similar symptoms Related Data Previous Rx's ?Medication ?Instructions ?Recorded triamcinolone acetonide 0.5 % 1 appl topical BID 2 weeks #60 10/23/22 topical cream grams amlodipine 5 mg tablet 5 mg PO DAILY #90 tabs 07/31/23 lisinopril 10 mg tablet 10 mg PO DAILY #90 tabs 02/03/24 Allergies Allergy/AdvReac Type Severity Reaction Status Date / Time No Known Allergies Allergy Verified 02/06/24 10:37 [No Known Allergies*] Review of Systems Review of Systems: Yes all other systems are reviewed and are negative Constitutional: Constitutional: Reports as per [facility] Past Medical History Attestation statement: The following information was validated with the patient. Source: old records reviewed Medical History Vaccination refused by patient Smokes one pack per day or less and unmotivated to quit Elevated low density lipoprotein (LDL) cholesterol level Polyarthralgia Spongiotic dermatitis Essential hypertension Herniated disc Surgical History No pertinent past surgical history Family History Family History Mother Diabetes mellitus Sister Diabetes mellitus Social History Social History Housing: House Alcohol intake: current Alcohol intake frequency: a few times a week Alcohol type: beer Patient Tobacco Use Status: Current everyday Tobacco user Cigarette Packs Per Day: 10 Smoked in Last 30 Days: Yes e-Cigarette/Vaping Use: Never Used Use of substances other than those prescribed or required for medical reasons: No Advance Directives: Yes Advance Directives on File: Yes Advance Directives Date on File: 01/09/22 Do you have a plan to hurt others: No Plan service: No Current occupational status: retired Cognitive needs: No Hearing needs: No Vision needs: No Physical Exam Vital Signs: Vital Signs: Last Vital Signs Temp 97.9 F 02/06/24 10:35 Pulse 104 H 02/06/24 10:35 Resp 18 02/06/24 10:35 BP 169/99 H 02/06/24 10:35 Pulse Ox 100 02/06/24 10:35 O2 Del Method Room Air 02/06/24 10:35 BMI result Body Mass Index 28.2 Const: General: cooperative, healthy appearing and no acute distress Orientation/consciousness: patient oriented x3 Limitations: no limitations HEENT: Head: Yes normal to inspection and Yes atraumatic Ears: hearing grossly normal bilaterally General nose exam: Normal external nose present Face and sinus: Yes normal facial exam Eyes: General: appearance normal, both eyes and all related structures EOM: EOMs intact bilaterally Neck: Neck: Yes normal visual inspection and Yes no meningeal signs Resp: Effort & Inspection: normal respiratory effort and no respiratory distress Cardio: Rate: regular rate Skin: Rashes: no rashes Wounds: no wounds Neuro: General: patient oriented x3, tone normal and no meningeal signs Cranial nerves: Yes CN's II-XII intact bilaterally Gait exam (Neuro): Normal gait present Extrem: Other: RLE with +calf ttp, no edema. NV intact distally. +mild heel erythema, no lymphangitis/streaking. No crepitus. Course Course Course Narrative: XR calcaneus RT min 2V/XR foot RT min 3V IMPRESSION: 1. Small posterior and inferior calcaneal spurs. 2. No fracture. 1255-- US venous duplex LE RT IMPRESSION: No evidence of deep venous thrombosis involving the right lower extremity. US arterial duplex LE RT IMPRESSION: Findings suggesting occlusion of the right superficial femoral artery, distal popliteal artery, peroneal artery, and posterior tibial artery. Suspect reconstitution of the proximal popliteal artery for a short segment as well as reconstitution of the anterior tibial artery/dorsalis pedis, which demonstrate diminished flow. > no vascular on-call today, Dr. Crespo, general surgery on-call however recommended transferring out. [facility] transfer line called - spoke with vascular at [facility] Dr. Munoz who accepted transfer, direct admission. Will initiate IV heparin bolus and drip. Medical Decision Making Medical Decision Making [facility] Narrative: 68-year-old male with a past medical history of spondylotic dermatitis, HTN, polyarthralgia, HLD, presenting to the ED complaining of RLE pain radiating from knee to toes with associated numbness x3-4 weeks. On exam mildly tachycardic, NAD, nontoxic appearing, physical exam as noted above. Concern for PAD vs DVT. R/o strain vs occult fracture. No evidence of cellulitis/ infection. Unlikely septic joint. Plan: X-ray, venous and arterial ultrasound Please refer to course for remaining clinical decision making, interpretation of labs/imaging results, and discussions with consultants and/or family members. Differential Diagnosis Differential Diagnoses: The differential diagnosis associated with the presentation includes As above Admission/Observation Consideration of admission/observation: Escalation of care including admission/observation considered Lab Data [facility] Lab Attestation statement: I reviewed the patient's lab results. 02/06/24 13:22 02/06/24 13:22 Independent Interpretation I performed an independent interpretation of an: Plain X-Ray and Ultrasound Radiology Impression Discussion of test interpretation with radiology: I have reviewed the radiologist's reading. External Record Review External record reviewed: Inpatient record, Office record, Outpatient record, Prior outpatient labs, Prior outpatient radiology, Primary care record and Outside ED record Tests considered The following testing was considered but not selected: As above Prescription Management I considered prescription management with: Pain Medication Chronic Conditions Patient?s care impacted by: Other Social Determinants Patient?s care significantly limited by Social Determinants of Health including: Other Social Determinant of Health Critical Care Time Critical Care Time Critical Care Time: Yes Total Critical Care Time: 45 Attestation: I have personally provided critical care time exclusive of time spent on separately billable procedures. Time includes review of lab data, radiology results, discussion with consultants, and monitoring for potential decompensation. Intervention performed as documented. Discharge Plan Discharge Clinical Impression: Superficial femoral artery occlusion, Acute occlusion of artery of lower extremity Patient Disposition: [facility] Transfer Details: [facility] Dr. Munoz Prescriptions: No Action lisinopril 10 mg tablet 10 mg PO DAILY Qty: 90 1RF triamcinolone acetonide 0.5 % cream 1 appl topical BID 14 Days Qty: 60 0RF amlodipine 5 mg tablet 5 mg PO DAILY Qty: 90 1RF Print Language: Mozambican
[2024-02-06 13:27] LABS: MANUAL DIFF FLAG NO
[2024-02-06 13:31] VITALS: BMI 28.2
[2024-02-06 13:36] LABS: Basophils Percent Auto 0.4 % (0-2); Eosinophils Absolute Auto 0.4 X10*3/uL (0.0-0.4); Eosinophils Percent Auto 3.5 % (0-4); Hematocrit 38.4 % (42.0-52.0); Hemoglobin 13.6 g/dl (14.0-18.0); Imm Gran Abs Auto 0.04 X10*3/uL (0.00-0.03); Imm Gran Pct Auto 0.4 % (0.0-0.4); Lymphocytes Absolute Auto 2.4 X10*3/uL (1.2-4.9); Lymphocytes Percent Auto 22.5 % (20-40); Mean Corpuscular HGB Conc 35.4 g/dl (31.0-36.0); Mean Corpuscular Hemoglobin 31.3 pg (27.0-33.0); Mean Corpuscular Volume 88.3 fL (80.0-98.0); Mean Platelet Volume 11.3 fL (9.4-12.4); Monocytes Absolute Auto 0.7 X10*3/uL (0.1-1.2); Monocytes Percent Auto 6.9 % (2-11); Neutrophils Percent Auto 66.3 % (45-73); Platelet Count 265 X10*3/uL (160-400); Red Blood Count 4.35 X10*6/uL (4.60-5.80); Red Cell Distribution Width 12.5 % (11.0-16.0); White Blood Count 10.5 X10*3/uL (4.8-10.8)
[2024-02-06 13:41] VITALS: BMI 27.6
[2024-02-06 13:43] LABS: INTERNATIONAL NORM RATIO 0.9 (0.9-1.1)
[2024-02-06 13:46] LABS: Partial Thromboplastin Time 30.4 SEC (26.0-36.8)
[2024-02-06] MEDS: Heparin Sodium,Porcine 5,000 UNIT/ML VIAL 4000 UNIT IVPUSH (13:59)
[2024-02-06] MEDS: Heparin Sodium,Porcine/1/2NS 25,000 UNIT/250 ML IV.SOLN 10 UNIT IVCONT (14:05)
--- NOTE | 2024-02-06 14:10 | PC.NURSE ---
Addendum entered by Meche Yee RN 02/06/24 14:25: rt foot cap refill >2seconds. Original Note: Patient a&ox3, bilateral IVs inserted, labs drawn, standing and bed weights performed. Pt doppler dorsalis pedis marked, unable to locate post tib pulse. IV heparin bolus and heparin drip started. pt awaiting transfer to [facility].
--- NOTE | 2024-02-06 14:21 | PC.NURSE ---
report called to lurdes at [facility]
[2024-02-06 14:30] LABS: Anion Gap 15 (12-20); Blood Urea Nitrogen 11 mg/dL (9-16); Calcium 9.2 mg/dL (8.4-10.2); Carbon Dioxide 22 mmol/L (22-29); Chloride 102 mmol/L (96-108); Creatinine Clr Calc Pharmacy 87.8; Estimated Glomerular Filt Rate > 60; Glucose Random 101 mg/dL (60-115); Potassium 4.1 mmol/L (3.3-5.1); Sodium 135 mmol/L (135-145)
[2024-02-06 14:38] VITALS: BP 180/79; PULSE 92; RESP 20; TEMP 37; O2SAT 99
[2024-02-06 15:09] VITALS: BP 178/75; PULSE 96; RESP 20; TEMP 37; O2SAT 99
[2024-02-06 15:11] VITALS: BP 178/75; PULSE 96; RESP 20; TEMP 37; O2SAT 99
== END 2024-02-06 15:12 | disposition short-term general hospital (02) ==
PROVIDERS: Physician Assistant; Emergency Provider Emergency Medicine; PCP Internal Medicine
DX: I77.1 Stricture of artery (principal); M77.31 Calcaneal spur, right foot; M79.671 Pain in right foot; R60.0 Localized edema; M79.674 Pain in right toe(s); R20.0 Anesthesia of skin; M25.561 Pain in right knee; I10 Essential (primary) hypertension; M79.10 Myalgia, unspecified site; F17.210 Nicotine dependence, cigarettes, uncomplicated; Z79.899 Other long term (current) drug therapy
CPT/HCPCS: 36415; 73630; 73650; 80048; 85025; 85610; 85730; 93926; 93971; 96374; 99284; 99285; J1644

== ENCOUNTER 2024-06-18 08:15 | Outpatient (REF) | payer MEDICARE, SELFPAY ==
[2024-06-18 10:20] LABS: MANUAL DIFF FLAG NO
[2024-06-18 10:26] LABS: Basophils Percent Auto 0.4 % (0-2); Eosinophils Absolute Auto 0.3 X10*3/uL (0.0-0.4); Eosinophils Percent Auto 4.9 % (0-4); Hematocrit 36.9 % (42.0-52.0); Hemoglobin 12.6 g/dl (14.0-18.0); Imm Gran Abs Auto 0.01 X10*3/uL (0.00-0.03); Imm Gran Pct Auto 0.1 % (0.0-0.4); Lymphocytes Absolute Auto 1.5 X10*3/uL (1.2-4.9); Mean Corpuscular HGB Conc 34.1 g/dl (31.0-36.0); Mean Corpuscular Hemoglobin 30.9 pg (27.0-33.0); Mean Corpuscular Volume 90.4 fL (80.0-98.0); Monocytes Absolute Auto 0.7 X10*3/uL (0.1-1.2); Monocytes Percent Auto 9.4 % (2-11); Neutrophils Absolute Auto 4.4 x10*3/uL (2.0-8.3); Neutrophils Percent Auto 63.2 % (45-73); Platelet Count 274 X10*3/uL (160-400); Red Blood Count 4.08 X10*6/uL (4.60-5.80); Red Cell Distribution Width 13.4 % (11.0-16.0); White Blood Count 6.9 X10*3/uL (4.8-10.8)
[2024-06-18 10:58] LABS: Alanine Aminotransferase 21 U/L (0-40); Anion Gap 11 (12-20); Aspartate Amino Transferase 21 U/L (5-37); Blood Urea Nitrogen 8 mg/dL (9-16); Calcium 9.4 mg/dL (8.4-10.2); Carbon Dioxide 25 mmol/L (22-29); Chloride 104 mmol/L (96-108); Cholesterol 130 mg/dL (<200); Estimated Glomerular Filt Rate > 60; Glucose Fasting 103 mg/dL (60-99); HDL Cholesterol 56 mg/dL (>40); Iron 77 mcg/dL (45-160); LDL Cholesterol Calculated 63 mg/dL (<100); Percent Iron Saturation 32 % (15-50); Potassium 4.8 mmol/L (3.3-5.1); Sodium 135 mmol/L (135-145); Total Iron Binding Capacity 240 mcg/dL (228-428); Triglycerides 58 mg/dL (<150); Unsaturated Iron Binding 163 ug/dL
[2024-06-18 11:11] LABS: PSA,Total (Free>4and<10) 1.58 ng/mL (0.00-4.00)
== END 2024-06-18 08:16 | disposition home or self-care (01) ==
LOC: HO.HMGCLDS 08:15
PROVIDERS: PCP Internal Medicine; Visit Provider Internal Medicine
DX: F17.210 Nicotine dependence, cigarettes, uncomplicated (principal); E78.00 Pure hypercholesterolemia, unspecified; M25.50 Pain in unspecified joint; I10 Essential (primary) hypertension; I73.9 Peripheral vascular disease, unspecified; D64.9 Anemia, unspecified; Z12.5 Encounter for screening for malignant neoplasm of prostate; Z98.890 Other specified postprocedural states
CPT/HCPCS: 36415; 80048; 80061; 83540; 84153; 84450; 84460; 85025

== ENCOUNTER 2024-06-19 08:59 | Outpatient (AMB) | payer MEDICARE, SELFPAY ==
--- NOTE | 2024-06-19 09:34 | MHC.PC.OV ---
Vital Signs 06/19/24 09:37 Height 6 ft 2 in Weight 219 lb BMI 28.1 BP 128/70 Blood Pressure Location Lt brachial Position Sitting Respiration 16 Pulse 98 Pulse Source Pulse Oximeter Temp 97.9 F Temp Source Oral Pulse Oximetry (%) 98 Oxygen Delivery Method Room Air Intake Visit Reasons: 5 months f/up Intake Note: Pt is here today for his 5mo. f/u Allergies No Known Allergies [No Known Allergies*] Allergy (Verified 06/19/24 10:07) Medication List - Last Reconciled 06/19/24 by Tracy Lowry MD amlodipine 5 mg PO DAILY aspirin 81 mg PO DAILY atorvastatin 40 mg PO DAILY clopidogrel 75 mg PO DAILY lisinopril 10 mg PO DAILY triamcinolone acetonide 0.5% 1 appl topical BID 2 weeks Tobacco use date assessed: 06/19/24 Fall risk assessment: No Falls in past year Last assessed Fall Risk: 06/19/24 Dental Screening Dental Screen Date: 06/19/24 Did you have a dental visit in the last 12 months?: No Did you have a dental problem in the last 6 months where you did not have access to dental care?: No Was dental information given to patient?: No HPI 5 months f/up HPI Details 68-year-old male with past medical history of peripheral arterial disease post right femoral to 80 bypass vein for ischemic rest pain on 02/19/2024, currently followed at [facility], has hypertension, here today for his follow-up. He has been compliant with taking his medications, blood pressure stable controlled on lisinopril g once a day. He continues to smoke but wants help to quit smoking. Interested in trying Chantix. [facility] Medical History (Updated 06/19/24 @ 10:17 by Tracy Lowry MD) Cigarette smoker motivated to quit Anemia Peripheral arterial disease with history of revascularization Vaccination refused by patient Elevated low density lipoprotein (LDL) cholesterol level Polyarthralgia Spongiotic dermatitis Essential hypertension Herniated disc Surgical History (Updated 06/22/24 @ 19:33 by Tracy Lowry MD) Status post femorotibial bypass Family History Mother Diabetes mellitus Sister Diabetes mellitus Social History Housing: House Alcohol intake: current Alcohol intake frequency: a few times a week Alcohol type: beer Patient Tobacco Use Status: Current everyday Tobacco user Cigarette Packs Per Day: 10 e-Cigarette/Vaping Use: Never Used Advance Directives Date on File: 01/09/22 service: No Current occupational status: retired Cognitive needs: No Hearing needs: No Vision needs: Yes Questionnaire PHQ-9 Over the last 2 weeks, how often have you been bothered by any of the following problems? 1. Little interest or pleasure in doing things: not at all 2. Feeling down, depressed, or hopeless: not at all 3. Trouble falling or staying asleep, or sleeping too much: not at all 4. Feeling tired or having little energy: not at all 5. Poor appetite or overeating: not at all 6. Feeling bad about yourself - or that you are a failure or have let yourself or your family down: not at all 7. Trouble concentrating on things, such as reading the newspaper or watching television: not at all 8. Moving or speaking so slowly that other people could have noticed. Or the opposite - being so fidgety or restless that you have been moving around a lot more than usual: not at all 9. Thoughts that you would be better off or of hurting yourself in some way: not at all Total score: 0 Depression Screening Interpretation: Negative Depression Screening Done: Yes 82343 - PHQ-9 Billing: Yes Source: Developed by Drs. Bentley Marinelli, Mariana Charlton, John Young and colleagues, with an educational angela from [employer]. Thrive Questionnaire Date Thrive assessed: 06/19/24 I am a: Patient What is your living situation today?: I choose not to answer this question Within the past 12 months, did the food you bought not last and you didn't have the money to get more?: I choose not to answer this question Within the past 12 months, did you worry whether your food would run out before you got money to buy more?: I choose not to answer this question Do you have trouble paying for medicines?: No Do you have trouble getting transportation to medical appointments?: No Do you have trouble paying your heating and electricity bill?: I choose not to answer this question Do you have trouble taking care of your child, family member or friend?: I choose not to answer this question Do you have trouble with day-to-day activities such as bathing, preparing meals, shopping, managing finances, etc.?: No Are you currently unemployed and looking for a job?: Yes Are you interested in more education?: No Please select the resources that you would like help with: Food and Utilities Currently or been in a relationship where the following occur: I choose not to answer THRIVE Score: 0 AUDIT C Alcohol Use Questionnaire (AUDIT-C) 1. How often do you have a drink containing alcohol?: Monthly or less 2. How many drinks containing alcohol do you have on a typical day when you are drinking?: 1 or 2 3. How often do you have six or more drinks on one occasion?: Monthly Total Score: 3 NERI-7 AMB Questionnaire NERI-7 Date NERI - 7 assessed: 06/19/24 Feeling nervous, anxious, or on edge: 0 = Not at all Not being able to stop or control worryin = Not at all Worrying too much about different things: 0 = Not at all Trouble relaxin = Not at all Being so restless that it is hard to sit still: 0 = Not at all Becoming easily annoyed or irritable: 0 = Not at all Feeling afraid as if something awful might happen: 0 = Not at all Total NERI-7 score (0-4 normal; 5-9 mild; 10-14 moderate; 15-21 severe): 0 Source: Developed by Drs. Bentley Marinelli, Mariana Charlton, John Young and colleagues, with an educational angela from [employer]. Review of Systems Const Denies body aches, Denies fever(s) and Denies malaise Eyes Denies change in vision ENT Denies dizziness and Denies sore throat Card Reports no additional complaints Resp Reports no additional complaints GI Denies abdominal pain and Denies change in bowel habits Reports no additional complaints Musc Reports no additional complaints and Reports as per HPI Neuro Reports no additional complaints and Denies dizziness Psych Reports no additional complaints Endo Reports no additional complaints Uriel/Lymph Reports no additional complaints Aller/Immun Reports no additional complaints Physical exam (Primary Care) Vital Signs: Last Vital Signs Temp 97.9 F 06/19/24 09:37 Pulse 98 06/19/24 09:37 Resp 16 06/19/24 09:37 BP 128/70 06/19/24 09:37 Pulse Ox 98 06/19/24 09:37 Oxygen Delivery Method Room Air 06/19/24 09:37 BMI result Body Mass Index 28.1 Tobacco/Smoking Status: Tobacco use Status Tobacco use date assessed 06/19/24 06/19/24 09:44 Patient Tobacco Use Status Current everyday Tobacco 06/19/24 09:34 e-Cigarette/Vaping Use Never Used 06/19/24 09:34 Are you ready to quit: Yes Tobacco cessation counseling provided: Yes Items discussed: Other (started on Varenicline) PHQ-9: PHQ-9 Score PHQ-9: Total score 0 06/19/24 10:22 Depression Screening Interpretation: Negative Thrive Assessment: Date of Thrive Assessment Date Thrive assessed 06/19/24 06/19/24 09:44 Currently or been in a relationship where the following occur: I choose not to answer Const Other: Alert oriented x3, no acute distress noted Nutritional Appearance: average body habitus HENMT Head: Yes normocephalic and Yes atraumatic Mouth: Normal oral and palatal mucosa present Neck Neck: Yes full ROM, Yes no lymphadenopathy and Yes supple Resp Effort & Inspection: normal respiratory effort and able to speak in complete sentences Auscultation: clear to auscultation bilaterally Cardio Rate: regular rate Rhythm: regular rhythm Heart sounds: S1 normal heart sound present and S2 normal heart sound present GI Palpation (GI): Soft to palpation, nontender, no guarding and no masses Auscultation: normal bowel sounds Neuro General: gait normal, moves all extremities and no focal motor deficits Extrem General: Yes full ROM, Yes no joint enlargement, Yes no pedal edema, Yes no calf tenderness and Yes normal gait Psych Appearance: grossly normal and well kempt Mental Status: mental status grossly normal Speech and movement: Normal speech and movement present Affect: normal affect Results Reviewed Results Reviewed: Name: Joe Gaston Age/Sex: 68/M : 1955 Unit#: [id number] Attend Dr: Tracy Lowry MD Re06/18/24 Status: DEP REF Location: [facility] Disch: SPEC : [id number] IAM: 06/18/24 STATUS: COMP REQ : [id number] RECD: 06/18/[address]: Tracy Lowry MD COMP: 06/18/24 ENTERED: 06/18/24 [facility] DR: ORDERED: CBC Auto Diff Test Result Flag Reference WBC 6.9 4.8-10.8 X10*3/uL RBC 4.08 L 4.60-5.80 X10*6/uL HGB 12.6 L 14.0-18.0 g/dl HCT 36.9 L 42.0-52.0 % MCV 90.4 80.0-98.0 fL MCH 30.9 27.0-33.0 pg MCHC 34.1 31.0-36.0 g/dl RDW 13.4 11.0-16.0 % PLT 274 160-400 X10*3/uL MPV 11.0 9.4-12.4 fL Neut Pct Auto 63.2 45-73 % ImGran Pct Auto 0.1 0.0-0.4 % Lymp Pct Auto 22.0 20-40 % [place] Pct Auto 9.4 2-11 % Eos Pct Auto 4.9 H 0-4 % Baso Pct Auto 0.4 0-2 % NRBC Pct Auto 0.0 0.0-0.2 /100WBC ANC Neut Abs # 4.4 2.0-8.3 x10*3/uL ImGran Abs Auto 0.01 0.00-0.03 X10*3/uL Lymph Abs Auto 1.5 1.2-4.9 X10*3/uL [place] Abs Auto 0.7 0.1-1.2 X10*3/uL Eos Abs Auto 0.3 0.0-0.4 X10*3/uL Baso Abs Auto 0.0 0.0-0.2 X10*3/uL NRBC Abs Auto 0.000 0.0-0.012 X10*3/uL Name: Joe Gaston Age/Sex: 68/M : 1955 Unit#: [id number] Attend Dr: Tracy Lowry MD Re06/18/24 Status: DEP REF Location: [id number] Disch: SPEC : [id number] IAM: 06/18/24 STATUS: COMP REQ : [id number] RECD: 06/18/24-[address]: Tracy Lowry MD COMP: 06/18/24 ENTERED: 06/18/[address]: ORDERED: Met Prof Fast, IRON PROF, AST, ALT, Lipid Panel Test Result Flag Reference Sodium 135 135-145 mmol/L Potassium 4.8 3.3-5.1 mmol/L CL 104 96-108 mmol/L CO2 25 22-29 mmol/L Gap 11 L 12-20 BUN 8 L 9-16 mg/dL Creat 0.81 0.5-1.4 mg/dL eGFR > 60 Chronic Kidney Disease: Estimated GFR < 60 mL/min/1.73m2 Severe Kidney Disease: Estimated GFR < 15 mL/min/1.73m2 FBS 103 H 60-99 mg/dL A fasting glucose from 100-125 mg/dl is considered impaired (pre-diabetes). CA 9.4 8.4-10.2 mg/dL Iron 77 45-160 mcg/dL TIBC 240 228-428 mcg/dL Saturation 32 15-50 % UIBC 163 ug/dL AST (GOT) 21 5-37 U/L ALT (GPT) 21 0-40 U/L Triglyceride 58 <150 mg/dL Desirable Triglyceride: less than 150 mg/dL Borderline High Triglyceride 150-199 mg/dL High Triglyceride: 200-499 mg/dL Very High Triglyceride: greater than or equal to 5OO mg/dL Cholesterol 130 <200 mg/dL Desirable Cholesterol: less than 200 mg/dL Borderline High Cholesterol: 200-239 mg/dL High Cholesterol: greater than 239 mg/dL LDL Calculated 63 <100 mg/dL Desirable LDL: less than 100 mg/dL Near Optimal/Above Optimal LDL: 110-129 mg/dL Borderline High LDL: 130-159 mg/dL High LDL: 160-189 mg/dL Very High LDL: greater than or equal to 190 mg/dL HDL 56 >40 mg/dL Desirable HDL: greater than 40 mg/dL Note: This HDL assay may give artificially low results in patients with liver disease. Coding Level of Care Code Est Pt Level 4 (35969) Diagnoses Cigarette smoker motivated to quit F17.210 Peripheral arterial disease with history of revascularization I73.9; Z98.890 Essential hypertension I10 Additional Codes PHQ-9 - 60834 - PHQ-9 Billing: Yes ([id number]) Assessment & Plan Assessment & Plan (1) Cigarette smoker motivated to quit: Code(s): F17.210 - Nicotine dependence, cigarettes, uncomplicated Category: Social Hx Plan: Started on varenicline starter pack , directions given to patient on how to take the medication, and possible side effects that might occur. Advised to start cutting back on his cigarette to use once he starts taking the starter pack, and see me back for follow-up at the end of this month (2) Peripheral arterial disease with history of revascularization: Code(s): I73.9 - Peripheral vascular disease, unspecified; Z98.890 - Other specified postprocedural states Category: Medical Plan: Currently on aspirin and clopidogrel (3) Essential hypertension: Code(s): I10 - Essential (primary) hypertension Category: Medical Plan: Continue on lisinopril 10 mg daily Medications: New varenicline tartrate PO PER PKG DIR 53 ea 0RF F17.210 - Nicotine dependence, cigarettes, uncomplicated
[2024-06-19 09:37] VITALS: BP 128/70; PULSE 98; RESP 16; TEMP 36.6; O2SAT 98; BMI 28.1
== END 2024-06-19 10:43 | disposition home or self-care (01) ==
LOC: HO.HMCC 09:00
PROVIDERS: PCP Internal Medicine; Visit Provider Internal Medicine
DX: F17.210 Nicotine dependence, cigarettes, uncomplicated (principal); I73.9 Peripheral vascular disease, unspecified; Z98.890 Other specified postprocedural states; I10 Essential (primary) hypertension

== ENCOUNTER → 2024-06-19 08:59 | Outpatient (BNVA) | payer MEDICARE, SELFPAY | PROVIDERS: PCP Internal Medicine; Visit Provider Internal Medicine | DX: I78.9 Disease of capillaries, unspecified (principal); I10 Essential (primary) hypertension; F17.210 Nicotine dependence, cigarettes, uncomplicated; I73.9 Peripheral vascular disease, unspecified; Z79.899 Other long term (current) drug therapy; Z98.890 Other specified postprocedural states | CPT/HCPCS: 96127; 99212 ==

== ENCOUNTER 2025-02-03 09:17 | Outpatient (REF) | payer MEDICARE, SELFPAY ==
[2025-02-03 13:42] LABS: MANUAL DIFF FLAG NO
[2025-02-03 14:00] LABS: Hematocrit 40.8 % (42.0-52.0); Hemoglobin 14.0 g/dl (14.0-18.0); Imm Gran Abs Auto 0.04 X10*3/uL (0.00-0.03); Imm Gran Pct Auto 0.4 % (0.0-0.4); Lymphocytes Absolute Auto 1.7 X10*3/uL (1.2-4.9); Mean Corpuscular HGB Conc 34.3 g/dl (31.0-36.0); Mean Corpuscular Hemoglobin 31.3 pg (27.0-33.0); Mean Corpuscular Volume 91.1 fL (80.0-98.0); NRBC Abs Auto 0.000 X10*3/uL (0.0-0.012); NRBC Pct Auto 0.0 /100WBC (0.0-0.2); Platelet Count 283 X10*3/uL (160-400); Red Blood Count 4.48 X10*6/uL (4.60-5.80); White Blood Count 9.1 X10*3/uL (4.8-10.8)
[2025-02-03 14:23] LABS: Alanine Aminotransferase 27 U/L (0-40); Anion Gap 12 (12-20); Aspartate Amino Transferase 25 U/L (5-37); Blood Urea Nitrogen 13 mg/dL (9-16); Calcium 9.8 mg/dL (8.4-10.2); Carbon Dioxide 25 mmol/L (22-29); Chloride 104 mmol/L (96-108); Cholesterol 127 mg/dL (<200); Estimated Glomerular Filt Rate > 60; HDL Cholesterol 61 mg/dL (>40); Iron 101 mcg/dL (45-160); Percent Iron Saturation 37 % (15-50); Potassium 5.1 mmol/L (3.3-5.1); Sodium 136 mmol/L (135-145); Total Iron Binding Capacity 271 mcg/dL (228-428); Triglycerides 52 mg/dL (<150); Unsaturated Iron Binding 170 ug/dL
[2025-02-03 14:40] LABS: Ferritin 183 ng/mL (20-250)
== END 2025-02-03 09:18 | disposition home or self-care (01) ==
LOC: HO.HMGCLDS 09:17
PROVIDERS: PCP Internal Medicine; Visit Provider Internal Medicine
DX: Z00.00 Encounter for general adult medical examination without abnormal findings (principal); I73.9 Peripheral vascular disease, unspecified; I10 Essential (primary) hypertension; E78.00 Pure hypercholesterolemia, unspecified; D64.9 Anemia, unspecified; L30.8 Other specified dermatitis; F17.210 Nicotine dependence, cigarettes, uncomplicated; Z28.21 Immunization not carried out because of patient refusal; Z98.890 Other specified postprocedural states; Z79.899 Other long term (current) drug therapy; Z79.82 Long term (current) use of aspirin
CPT/HCPCS: 36415; 80048; 80061; 82306; 82728; 83036; 83540; 84450; 84460; 85025

== ENCOUNTER 2025-02-03 09:17 | Outpatient (AMB) | payer MEDICARE, SELFPAY ==
--- NOTE | 2025-02-03 09:25 | A.OFFVIS_ITS ---
Intake Vital Signs 02/03/25 09:28 Height 6 ft 2 in Weight 225 lb BMI 28.9 BP 130/80 Blood Pressure Location Rt brachial Position Sitting Respiration 16 Pulse 88 Pulse Source Pulse Oximeter Temp 98.0 F Temp Source Oral Pulse Oximetry (%) 98 Oxygen Delivery Method Room Air Intake Visit Reasons: SWV G0439 Intake Note: Pt is here today for his SWV: Last cologuard 05/14/22 Supervisor Finishing Required: No Allergies No Known Allergies (No Known Allergies*) Allergy (Verified 02/03/25 09:34) Medication List - Last Reconciled 02/03/25 by Tracy Lowry MD amlodipine 5 mg PO DAILY aspirin 81 mg PO DAILY atorvastatin 40 mg PO DAILY clobetasol 0.025% 1 appl topical BID lisinopril 10 mg PO DAILY HPI SWV G0439 HPI Details SWV ? 69 year-old male hypertension, polyarthralgia, with spongiotic dermatitis with alcohol use disorder, presents for his subsequent? Annual Wellness Visit. He has had negative colon cancer screening done with Cologuard 05/14/2022, prostate cancer screening was done with total PSA normal 06/18/24. Up-to-date with his screening for cholesterol and diabetes, done 06/18/24 with results within normal limits , except for fasting glucose at 103 mg/dl He does not want to get any vaccinations but had Tdap in 2021. ? Medical / Social History Reviewed? Past Medical History ?Yes . ? [place] of Care / Care Team list updated ?Yes . ? Surgical/Hospitalization History ?Yes . ? Current Medications (including OTC and supplements) ?Yes . ? Family History ?Yes . ? Tobacco Control form ?Yes . ? AUDIT-C (Alcohol use) form ?Yes . ? Illicit drug use in Social History ?Yes . ? Current diagnosis of depression? ?No ? Appropriate PHQ2/PHQ9 completed ?Yes . ? Data entered by ?Brim Ironer Hand and reviewed by provider ? Fall Risk ? Fall History? Have you had any falls with injury in the past year? ?No . ? Have you had two or more falls in the past year? ?No . ? Fall Risk Assessment: ?No falls in the past year . ? HRA filled out by the patient, reviewed by Provider and scanned. ?? SWV ? Balance? Romberg ?negative. ? Tandem walk ?Yes . ? Walk and Turn ?Yes . ? Rise from sit to stand ?Yes . ?Vision? Corrective lens ?Yes, wears 'cheater ? Vision screen ?sees [facility] ?Hearing? Whisper test failed ?Written Plan?Completed. See Patient Documents.? MOLST and Healthcare proxy up-to-date COUNT INCLUDES [facility] Medical History (Updated 02/03/25 @ 09:57 by Tracy Lowry MD) Decreased hearing of right ear Cigarette smoker motivated to quit Anemia Peripheral arterial disease with history of revascularization Vaccination refused by patient Elevated low density lipoprotein (LDL) cholesterol level Polyarthralgia Spongiotic dermatitis Essential hypertension Herniated disc Surgical History Status post femorotibial bypass Family History Mother Diabetes mellitus Sister Diabetes mellitus Social History Housing: House Alcohol intake: current Alcohol intake frequency: a few times a week Alcohol type: beer Patient Tobacco Use Status: Current everyday Tobacco user Cigarette Packs Per Day: 10 e-Cigarette/Vaping Use: Never Used Advance Directives Date on File: 01/09/22 service: No Current occupational status: retired Cognitive needs: No Hearing needs: No Vision needs: Yes Questionnaire Medicare Wellness Checkup [age] What gender do you identify with?: male During the past 4 weeks, how much have you been bothered by emotional problems such as feeling anxious, depressed, irritable, sad or downhearted, and blue?: not at all During the past 4 weeks, has your physical & emotional health limited your social activities with family, friends, neighbors, or groups?: not at all During the past 4 weeks, how much bodily pain have you generally had?: very mild pain During the past 4 weeks, was someone available to help you if you needed & wanted help?: yes, as much as I wanted During the past 4 weeks, what was the hardest physical activity you could do for at least 2 minutes?: moderate Can you get to places out of walking distance without help? (For eg., can you travel alone on buses, taxis or drive your car?): Yes Can you go shopping for groceries or clothes without someone's help?: Yes Can you prepare your own meals?: Yes Can you do your housework without help?: Yes Because of any health problems, do you need the help of another person with your personal care needs such as eating, bathing, dressing or getting around the house?: No Can you handle your own money without help?: Yes During the past 4 weeks, how would you rate your health in general?: very good During the past 4 weeks how have things been going for you?: very well; could hardly better Are you having difficulties driving your car?: no Do you always fasten your seat belt when you are in a car?: yes, usually During past 4 weeks, have you been bothered by the following: never: Falling or dizzy when standing up, Trouble eating well?, Teeth or denture problems?, Problems using the telephone? and Tiredness or fatigue? and sometimes: Sexual problems? Have you fallen 2 or more times in the past year?: No Are you afraid of falling?: No Are you a smoker?: yes, but I'm not ready to quit During the past 4 weeks, how many drinks of wine, beer, or other alcoholic beverages did you have?: 2-5 drinks per week Do you exercise for about 20 minutes 3 or more times a week?: yes, some of the time Have you been given information to help with the following?: no: Hazards in your house that might hurt you? and no: Keeping track of your medications? How often do you have trouble taking medicines the way you have been told to take them?: I always take medicine as prescribed How confident are you that you can control & manage most of your health problems?: very confident What is your race?: White Mini Mental State Exam (MMSE) Orientation What is the (year) (season) (date) (day) (month)?: year (2024), season (winter), date (02/03/25), day (sunday) and month () Where are we (state) (county) (town or city) (hospital) (floor)?: state ([facility] ([place]), town or city ([place]) and [place]inic [place] Score: 9 Activity of Daily Living Bathing - sponge bath, tub bath or shower: receives no assistance (gets in/out by self, if usual bathing means Dressing - getting clothes from closets & drawers, including inner/outer garments & fasteners.: gets clothes & gets completely dressed without help Toileting - going to the 'toilet room' for urine/bowel elimination & cleaning self/arranging clothes: goes to toilet room, cleans self, arranges clothes without help Transfer: moves in & out of bed and chair without help (may use support object) Continence: controls urination/bowel movements completely by self Feeding: feeds self without help Total Score: 0 Information obtained from: patient Using telephone: independent Traveling: independent Shopping: independent Preparing meals: independent Housework: independent Taking medicine: independent Managing money: independent PHQ-9 Over the last 2 weeks, how often have you been bothered by any of the following problems? 1. Little interest or pleasure in doing things: not at all 2. Feeling down, depressed, or hopeless: not at all 3. Trouble falling or staying asleep, or sleeping too much: not at all 4. Feeling tired or having little energy: not at all 5. Poor appetite or overeating: not at all 6. Feeling bad about yourself - or that you are a failure or have let yourself or your family down: not at all 7. Trouble concentrating on things, such as reading the newspaper or watching television: not at all 8. Moving or speaking so slowly that other people could have noticed. Or the opposite - being so fidgety or restless that you have been moving around a lot more than usual: not at all 9. Thoughts that you would be better off or of hurting yourself in some way: not at all Total score: 0 Depression Screening Interpretation: Negative Depression Screening Done: Yes Source: Developed by Drs. Bentley Marinelli, Mariana Charlton, John Young and colleagues, with an educational angela from [employer]. Review of Systems Skin/Breast Details: Currently followed [facility] diagnosed with spongiotic dermatitis, uses clobetasol cream twice a day for 2 weeks as needed stopped Physical Exam Vital Signs: Last Vital Signs Temp 98.0 F 02/03/25 09:28 Pulse 88 02/03/25 09:28 Resp 16 02/03/25 09:28 BP 130/80 02/03/25 09:28 Pulse Ox 98 02/03/25 09:28 Oxygen Delivery Method Room Air 02/03/25 09:28 BMI result Body Mass Index 28.9 Const General: no acute distress Orientation/consciousness: patient oriented x3 HEENT Head: Yes normal to inspection and Yes atraumatic Ears: hearing grossly impaired on the right General nose exam: Normal external nose present Face and sinus: Yes normal facial exam Eyes General: appearance normal, both eyes and all related structures Neck Neck: Yes full ROM, Yes no lymphadenopathy and Yes supple Resp Effort & Inspection: normal respiratory effort and no respiratory distress Auscultation: clear to auscultation bilaterally Cardio Rate: regular rate Rhythm: regular rhythm Heart sounds: S1 normal heart sound present and S2 normal heart sound present GI Palpation (GI): Soft to palpation, nontender and no guarding Auscultation: normal bowel sounds Skin Rashes: no rashes Neuro General: patient oriented x3 and tone normal Cranial nerves: Yes CN's II-XII intact bilaterally Gait exam (Neuro): Normal gait present Extrem General: Yes full ROM, Yes no joint enlargement, Yes no clubbing, cyanosis or edema and Yes normal gait Psych Affect: normal affect Assessment & Plan Assessment & Plan (1) Encounter for subsequent annual wellness visit (AWV) in Medicare patient: Code(s): Z00.00 - Encounter for general adult medical examination without abnormal findings Plan: Medical wellness checklist reviewed, discussed with patient and updated. Healthcare proxy and MOLST form already completed and in his medical record. Does not want to get any vaccines. Up-to-date with his colon cancer screening, due for another Cologuard test next year (2) Essential hypertension: Code(s): I10 - Essential (primary) hypertension Plan: Blood pressure at goal of less than 130/80. Currently on lisinopril 10 mg daily Reinforced importance of following a low sodium diet, getting regular exercise, and lowering stress levels. (3) Peripheral arterial disease with history of revascularization: Code(s): I73.9 - Peripheral vascular disease, unspecified; Z98.890 - Other specified postprocedural states Plan: Refill sent for his aspirin 81 mg taken once a day. Strongly advised to quit smoking. Patient states that he will quit smoking, 1st of the year (4) Anemia: Code(s): D64.9 - Anemia, unspecified Plan: No active bleeding noted. Repeat CBC iron profile ordered (5) Cigarette smoker motivated to quit: Code(s): F17.210 - Nicotine dependence, cigarettes, uncomplicated Plan: Patient has nicotine patches at home states that it does not work, but states that he is committed to quit smoking by the 1st of the year (6) Vaccination refused by patient: Code(s): Z28.21 - Immunization not carried out because of patient refusal Plan: Patient does not want to get any vaccines (7) Spongiotic dermatitis: Comment: ff'd by [facility] Code(s): L30.8 - Other specified dermatitis Plan: Currently followed by Dr. Hernandez, uses clobetasol 0.25% cream twice a day for 2 weeks as needed. (8) Decreased hearing of right ear: Code(s): H91.91 - Unspecified hearing loss, right ear Plan: Patient does not want to do any further hearing test, does not want to get a hearing aid Orders: Orders Aspartate Amino Transferase 02/03/25 D64.9 - Anemia, unspecified, E78.00 - Pure hypercholesterolemia, unspecified, F17.210 - Nicotine dependence, cigarettes, uncomplicated, I10 - Essential (primary) hypertension, I73.9 - Peripheral vascular disease, unspecified, L30.8 - Other specified dermatitis, Z28.21 - Immunization not carried out because of patient refusal, Z98.890 - Other specified postprocedural states Complete Blood Count Auto Diff 02/03/25 D64.9 - Anemia, unspecified, E78.00 - Pure hypercholesterolemia, unspecified, F17.210 - Nicotine dependence, cigarettes, uncomplicated, I10 - Essential (primary) hypertension, I73.9 - Peripheral vascular disease, unspecified, L30.8 - Other specified dermatitis, Z28.21 - Immunization not carried out because of patient refusal, Z98.890 - Other specified postprocedural states Ferritin 02/03/25 D64.9 - Anemia, unspecified, E78.00 - Pure hypercholesterolemia, unspecified, F17.210 - Nicotine dependence, cigarettes, uncomplicated, I10 - Essential (primary) hypertension, I73.9 - Peripheral vascular disease, unspecified, L30.8 - Other specified dermatitis, Z28.21 - Immunization not carried out because of patient refusal, Z98.890 - Other specified postprocedural states Hemoglobin A1c 02/03/25 D64.9 - Anemia, unspecified, E78.00 - Pure hypercholesterolemia, unspecified, F17.210 - Nicotine dependence, cigarettes, uncomplicated, I10 - Essential (primary) hypertension, I73.9 - Peripheral vascular disease, unspecified, L30.8 - Other specified dermatitis, Z28.21 - Immunization not carried out because of patient refusal, Z98.890 - Other specified postprocedural states Basic Metabolic Panel Fasting 02/03/25 D64.9 - Anemia, unspecified, E78.00 - Pure hypercholesterolemia, unspecified, F17.210 - Nicotine dependence, cigarettes, uncomplicated, I10 - Essential (primary) hypertension, I73.9 - Peripheral vascular disease, unspecified, L30.8 - Other specified dermatitis, Z28.21 - Immunization not carried out because of patient refusal, Z98.890 - Other specified postprocedural states Alanine Aminotransferase 02/03/25 D64.9 - Anemia, unspecified, E78.00 - Pure hypercholesterolemia, unspecified, F17.210 - Nicotine dependence, cigarettes, uncomplicated, I10 - Essential (primary) hypertension, I73.9 - Peripheral vascular disease, unspecified, L30.8 - Other specified dermatitis, Z28.21 - Immunization not carried out because of patient refusal, Z98.890 - Other specified postprocedural states Lipid Panel 02/03/25 D64.9 - Anemia, unspecified, E78.00 - Pure hypercholesterolemia, unspecified, F17.210 - Nicotine dependence, cigarettes, uncomplicated, I10 - Essential (primary) hypertension, I73.9 - Peripheral vascular disease, unspecified, L30.8 - Other specified dermatitis, Z28.21 - Immunization not carried out because of patient refusal, Z98.890 - Other specified postprocedural states IRON PROFILE 02/03/25 D64.9 - Anemia, unspecified, E78.00 - Pure hypercholesterolemia, unspecified, F17.210 - Nicotine dependence, cigarettes, uncomplicated, I10 - Essential (primary) hypertension, I73.9 - Peripheral vascular disease, unspecified, L30.8 - Other specified dermatitis, Z28.21 - Immunization not carried out because of patient refusal, Z98.890 - Other specified postprocedural states Vitamin D 25-OH Total 02/03/25 D64.9 - Anemia, unspecified, E78.00 - Pure hy percholesterolemia, unspecified, F17.210 - Nicotine dependence, cigarettes, uncomplicated, I10 - Essential (primary) hypertension, I73.9 - Peripheral vascular disease, unspecified, L30.8 - Other specified dermatitis, Z28.21 - Immunization not carried out because of patient refusal, Z98.890 - Other specified postprocedural states Medications: New aspirin 81 mg PO DAILY 90 tabs 1RF Quality Reporting (2019) Depression/Bipolar (159/160/161/177) PHQ-9: Total score: 0 Coding Level of Care Code Medicare Subsequent (G0439) Diagnoses Encounter for subsequent annual wellness visit (AWV) in Medicare patient Z00.00 Essential hypertension I10 Peripheral arterial disease with history of revascularization I73.9; Z98.890 Anemia D64.9 Cigarette smoker motivated to quit F17.210 Vaccination refused by patient Z28.21 Spongiotic dermatitis L30.8 Decreased hearing of right ear H91.91 CPT Codes Advance Care Planning - Advance Care Planning discussion: On file, no changes ([id number]) Advance Care Planning - Time spent: 1-15 minutes, on File ([id number]) Advance Care Planning Advance Care Planning discussion: On file, no changes Date of discussion: 02/03/25 Who was present: Patient Forms completed: Health Care Proxy and MOLST Time spent: 1-15 minutes, on File Actual minutes spent: 1
[2025-02-03 09:28] VITALS: BP 130/80; PULSE 88; RESP 16; TEMP 36.7; O2SAT 98; BMI 28.9
== END 2025-02-03 11:22 | disposition home or self-care (01) ==
LOC: HO.HMCC 09:17
PROVIDERS: PCP Internal Medicine; Visit Provider Internal Medicine
DX: Z00.00 Encounter for general adult medical examination without abnormal findings (principal); I10 Essential (primary) hypertension; I73.9 Peripheral vascular disease, unspecified; Z98.890 Other specified postprocedural states; D64.9 Anemia, unspecified; F17.210 Nicotine dependence, cigarettes, uncomplicated; Z28.21 Immunization not carried out because of patient refusal; L30.8 Other specified dermatitis; H91.91 Unspecified hearing loss, right ear